=== PATIENT | female | born 1940 | race Caucasian/White ===

== ENCOUNTER → 2018-01-03 14:57 | Outpatient (CLI) | payer MEDICARE, SELFPAY ==
--- NOTE | 2018-01-03 15:04 | XR_ITS ---
XR abdomen min 2V HISTORY: ITS.REASON: LT FLANK PAIN ORDERING PHYSICIAN: Chip Ledezma MD PATIENT AGE: 77 years COMPARISON: None FINDINGS: Bowel gas pattern is unremarkable with a few air-fluid levels within the colon which does not appear distended. There are 2 calcific densities over lower pole the left kidney measuring 6 and 4 mm consistent with nephrolithiasis. Degenerative changes are present in the lumbar spine and hips. No obvious ureteral calculi. IMPRESSION: Left nephrolithiasis
== END ==
PROVIDERS: PCP Family Medicine; Visit Provider Family Medicine
DX: R10.9 Unspecified abdominal pain (principal)
CPT/HCPCS: 74019

== ENCOUNTER → 2018-01-07 10:23 | Outpatient (POV) | payer MEDICARE, SELFPAY ==
[2018-01-07 10:31] VITALS: BP 97/52; PULSE 81; RESP 18; TEMP 36.6; O2SAT 92; BMI 24.0
--- NOTE | 2018-01-07 10:53 | HMH.PAINSOAP ---
[facility] Pain Management SOAP Note Subjective:: She is a pleasant 77-year-old white female who presents today for medication refills. Patient has recently returned from a trip from [place]. She is doing very well with her current regimen of medicine. She takes Lyrica 75 mg 1 p.o. twice daily and [place] 7.5 mg 3 times daily as needed. Patient rates her pain a 3 out of 10 today. 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 Patient has done well with her Lyrica so far and has had no side effects she is wondering if increasing the medication would help improve this. Patient's RAZIA #[id number] reviewed and appropriate. Patient UDS pending we will continue to monitor this. ROS General: no recent weight change, no fever, no sleep disturbances Respiratory: no cough, no shortness of air, no recurring pulmonary infections Cardiovascular/Peripheral Vascular: No chest pain, No palpitations, no edema, no shortness of breath. Gastrointestinal: no incontinence, normal bowel movements reported Genitourinary: no incontinence Musculoskeletal: Back pain Psychiatric: normal mood/ affect, Neurological: [denies weakness in extremities], [denies balance issues] Objective:: Physical Exam General: Alert and oriented x3, no acute distress, pleasant and cooperative, [on room air] Lungs: Resps E/U, Symmetrical chest expansion, Eyes: PERRL Musculoskeletal: Flexion and extension of lumbar spine somewhat guarded secondary to pain, deep tendon reflexes normal, strength in upper and lower extremities [5/5], normal gait noted Neurological: speech clear, customs and border protection inspector equal, no gross sensory deficits Assessment:: Degenerative disc disease of the lumbar spine with lumbar radiculopathy Plan:: We will increase the patient's medication Lyrica 75 mg to 150 mg twice daily. We will also give her 1 refill of her [place] 7.5 mg 1 p.o. 3 times daily as needed. Patient's Razia has been reviewed and appropriate patient's UDS is pending we will continue to monitor this. We will follow-up with this patient in [address] Craven has reviewed her chart and agrees with this plan of care. Patient has been prescribed a controlled substance after being counseled on the medication, medication safety, and possible side effects. RAZIA report has been obtained and reviewed prior to prescription and found to be appropriate. Opioid contract was reviewed and signed by the patient, and that they have agreed to all of the terms set forth by our compliance program. This note was dictated using voice recognition software and may contain errors or omissions
--- NOTE | 2018-01-07 10:56 | P.CONS_ITS ---
[facility] Pain Management SOAP Note Subjective:: She is a pleasant 77-year-old white female who presents today for medication refills. Patient has recently returned from a trip from [place]. She is doing very well with her current regimen of medicine. She takes Lyrica 75 mg 1 p.o. twice daily and [place] 7.5 mg 3 times daily as needed. Patient rates her pain a 3 out of 10 today. 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 Patient has done well with her Lyrica so far and has had no side effects she is wondering if increasing the medication would help improve this. Patient's RAZIA #[id number] reviewed and appropriate. Patient UDS pending we will continue to monitor this. ROS General: no recent weight change, no fever, no sleep disturbances Respiratory: no cough, no shortness of air, no recurring pulmonary infections Cardiovascular/Peripheral Vascular: No chest pain, No palpitations, no edema, no shortness of breath. Gastrointestinal: no incontinence, normal bowel movements reported Genitourinary: no incontinence Musculoskeletal: Back pain Psychiatric: normal mood/ affect, Neurological: [denies weakness in extremities], [denies balance issues] Objective:: Physical Exam General: Alert and oriented x3, no acute distress, pleasant and cooperative, [ on room air] Lungs: Resps E/U, Symmetrical chest expansion, Eyes: PERRL Musculoskeletal: Flexion and extension of lumbar spine somewhat guarded secondary to pain, deep tendon reflexes normal, strength in upper and lower extremities [5/5], normal gait noted Neurological: speech clear, production line equal, no gross sensory deficits Assessment:: Degenerative disc disease of the lumbar spine with lumbar radiculopathy Plan:: We will increase the patient's medication Lyrica 75 mg to 150 mg twice daily. We will also give her 1 refill of her [place] 7.5 mg 1 p.o. 3 times daily as needed. Patient's Razia has been reviewed and appropriate patient's UDS is pending we will continue to monitor this. We will follow-up with this patient in [address] Craven has reviewed her chart and agrees with this plan of care. Patient has been prescribed a controlled substance after being counseled on the medication, medication safety, and possible side effects. RAZIA report has been obtained and reviewed prior to prescription and found to be appropriate. Opioid contract was reviewed and signed by the patient, and that they have agreed to all of the terms set forth by our compliance program. This note was dictated using voice recognition software and may contain errors or omissions
[2018-01-07 13:18] LABS: Amphetamine/Metha Screen,Urine Negative ng/mL (<1000); Barbiturates Screen,Urine Negative ng/mL (<200); Benzodiazepines Screen,Urine Negative ng/mL (200); Cannabinoid Screen,Urine Negative ng/mL (<50); Cocaine Screen,Urine Negative ng/g (<300); Methadone Screen,Urine Negative ng/mL (<300); Opiate Screen,Urine Negative ng/mL (<300); Phencyclidine Screen,Urine Negative ng/mL (<25)
[2018-01-11 15:33] LABS: Opiates Negative (Cutoff=100)
== END ==
PROVIDERS: Family Provider Family Medicine; PCP Family Medicine; Visit Provider Clinical Nurse Specialist Family Health
DX: M54.16 Radiculopathy, lumbar region (principal); Z79.899 Other long term (current) drug therapy
CPT/HCPCS: 99212; 80305; 80361; 80365; G0480

== ENCOUNTER → 2018-01-16 11:21 | Outpatient (CLI) | payer MEDICARE, SELFPAY ==
--- NOTE | 2018-01-16 11:27 | CT_ITS ---
CT abdomen pelvis wo con CLINICAL INDICATION: ITS.REASON: LT FLANK PAIN, HEMATURIA, HX KID STONE ORDERING PHYSICIAN: Chip Ledezma MD PATIENT AGE: 77 years COMPARISON: 09/26/2011 TECHNIQUE: Axial images obtained with sagittal and coronal reformats. All CT scans at the facility use one or more dose reduction, viz: automated exposure control; ma/kV adjustment per patient size (including targeted exams where dose is matched to indication; i.e. head); or iterative reconstruction technique. PROCEDURE: Oral Contrast: None IV Contrast: None . FINDINGS: Lower thoracic images show scarring in the left lung base posterior laterally. The liver, spleen, adrenal glands, and pancreas have an unremarkable unenhanced appearance. No radio opaque gallstones are evident. There is moderate left hydronephrosis and proximal hydroureter secondary to a obstructing 4 mm stone in the proximal to mid aspect of the left ureter. The stone is at the L4 level. Is mild stranding of left perinephric renal fat. There is a 6 mm stone in the lower pole the left kidney. A 17 mm isodensity is present in the lower pole the right kidney suggesting a right renal cyst. Right parapelvic renal cysts also noted. Small lymph nodes versus unopacified vessels in the retroperitoneum on the left medial to the left renal hilum. There is a fusiform infrarenal abdominal aortic aneurysm measuring 4.7 cm AP and 4.4 cm transverse. This has increased in size previously measuring 3.3 x 3.3 cm. No intracranial hemorrhage evident. There is a mild amount retained colonic feces. No intestinal obstruction or free air. There are some very minimal stranding of the lateral conal fascia on the left which may be related to the left renal obstruction some underlying inflammation. No pelvic mass or abnormal collection. Degenerative changes are present in the lumbar spine. There is mild wedging of L3 unchanged. Minimal wedging involves T12 which is developed since the interval but does not appear to. There is 5 mm anterolisthesis of L3 on L4 which has developed since the previous exam with facet arthritic changes at L3-L4 and moderate to severe facet hypertrophy with canal stenosis at L3-L4 with foraminal narrowing. IMPRESSION: 1. 4 mm obstructing left mid ureteral calculus with moderate left hydronephrosis. Left nephrolithiasis. 2. Enlarging infrarenal abdominal aortic aneurysm 4.4 x 4.7 cm previously 3.3 x 3.3 cm 3. Other nonacute findings as described above.
== END ==
PROVIDERS: PCP Family Medicine; Visit Provider Family Medicine
DX: R10.9 Unspecified abdominal pain (principal); R31.29 Other microscopic hematuria; Z87.442 Personal history of urinary calculi
CPT/HCPCS: 74176

== ENCOUNTER → 2018-03-14 10:50 | Outpatient (CLI) | payer MEDICARE, SELFPAY ==
--- NOTE | 2018-03-14 10:55 | XR_ITS ---
XR KUB HISTORY: ITS.REASON: KIDNEY STONES ORDERING PHYSICIAN: Geoff Brush MD PATIENT AGE: 77 years COMPARISON: 01/16/2019 FINDINGS: There has been prior aortoiliac stent graft placement. A 6 mm stone is present along the lower pole of the left kidney. No obvious ureteral calculi. IMPRESSION: 1. Left nephrolithiasis without obvious ureteral calculus. 2. Interval aortoiliac stent graft placement
== END ==
PROVIDERS: PCP Family Medicine; Visit Provider Urology
DX: N20.0 Calculus of kidney (principal)
CPT/HCPCS: 74018

== ENCOUNTER → 2018-04-15 10:10 | Outpatient (POV) | payer MEDICARE, SELFPAY | PROVIDERS: Visit Provider Physician Assistant | DX: Z00.00 Encounter for general adult medical examination without abnormal findings (principal) ==

== ENCOUNTER → 2018-05-20 08:35 | Outpatient (POV) | payer MEDICARE, SELFPAY ==
[2018-05-20 09:19] VITALS: BP 141/67; PULSE 73; RESP 18; O2SAT 98; BMI 24.1
--- NOTE | 2018-05-20 09:57 | HMH.PAINSOAP ---
[facility] Pain Management SOAP Note Subjective:: Patient is a pleasant 77-year-old white female who presents today for medication refills. Patient has been doing well on her Lyrica 75 mg 1 p.o. twice daily. We will be increasing her to Lyrica 150 mg 1 p.o. twice daily. Patient has good with this medication with no side effects. Patient also on [place] 7.5 mg 1 p.o. 3 times daily as needed. Patient rates her pain at 3 out of 10 today. Patient's RAZIA #[id number] reviewed and appropriate. Patient will go for urine drug screen today. Patient states that most of her pain is around her low left mastectomy radiating into her arm. ROS General: no recent weight change, no fever, no sleep disturbances Respiratory: no cough, no shortness of air, no recurring pulmonary infections Cardiovascular/Peripheral Vascular: No chest pain, No palpitations, no edema, no shortness of breath. Gastrointestinal: no incontinence, normal bowel movements reported Genitourinary: no incontinence Musculoskeletal: Neck pain, chest wall pain Psychiatric: normal mood/ affect Neurological: [denies weakness in extremities], [denies balance issues] Objective:: Physical Exam General: Alert and oriented x3, no acute distress, pleasant and cooperative, [on room air] Lungs: Resps E/U, Symmetrical chest expansion, Eyes: PERRL Musculoskeletal: Flexion and extension of lumbar spine somewhat guarded secondary to pain, deep tendon reflexes normal, strength in upper and lower extremities [5/5], slightly antalgic gait noted Neurological: speech clear, slitter and rewinder equal, no gross sensory deficits Assessment:: Degenerative disc disease of lumbar spine with lumbar radiculopathy, chest wall pain Plan:: We will fill her Lyrica 150 mg 1 p.o. twice daily and give 1 month worth of her [place] 7.5 mg 1 p.o. 3 times daily. Patient's RAZIA reviewed. Patient will go for UDS today. Dr. Craven has reviewed this chart and agrees with this plan of care. We will follow-up with this patient in 3 months. We will call in a 1 week supply of Lyrica 150 mg 1 p.o. twice daily to [facility] until she can get her mail pharmacy prescription. Patient has been prescribed a controlled substance after being counseled on the medication, medication safety, and possible side effects. RAZIA report has been obtained and reviewed prior to prescription and found to be appropriate. Opioid contract was reviewed and signed by the patient, and that they have agreed to all of the terms set forth by our compliance program. This note was dictated using voice recognition software and may contain errors or omissions
--- NOTE | 2018-05-20 10:00 | P.CONS_ITS ---
[facility] Pain Management SOAP Note Subjective:: Patient is a pleasant 77-year-old white female who presents today for medication refills. Patient has been doing well on her Lyrica 75 mg 1 p.o. twice daily. We will be increasing her to Lyrica 150 mg 1 p.o. twice daily. Patient has good with this medication with no side effects. Patient also on [place] 7.5 mg 1 p.o. 3 times daily as needed. Patient rates her pain at 3 out of 10 today. Patient's RAZIA #[id number] reviewed and appropriate. Patient will go for urine drug screen today. Patient states that most of her pain is around her low left mastectomy radiating into her arm. ROS General: no recent weight change, no fever, no sleep disturbances Respiratory: no cough, no shortness of air, no recurring pulmonary infections Cardiovascular/Peripheral Vascular: No chest pain, No palpitations, no edema, no shortness of breath. Gastrointestinal: no incontinence, normal bowel movements reported Genitourinary: no incontinence Musculoskeletal: Neck pain, chest wall pain Psychiatric: normal mood/ affect Neurological: [denies weakness in extremities], [denies balance issues] Objective:: Physical Exam General: Alert and oriented x3, no acute distress, pleasant and cooperative, [ on room air] Lungs: Resps E/U, Symmetrical chest expansion, Eyes: PERRL Musculoskeletal: Flexion and extension of lumbar spine somewhat guarded secondary to pain, deep tendon reflexes normal, strength in upper and lower extremities [5/5], slightly antalgic gait noted Neurological: speech clear, social insurance adviser equal, no gross sensory deficits Assessment:: Degenerative disc disease of lumbar spine with lumbar radiculopathy, chest wall pain Plan:: We will fill her Lyrica 150 mg 1 p.o. twice daily and give 1 month worth of her [place] 7.5 mg 1 p.o. 3 times daily. Patient's RAZIA reviewed. Patient will go for UDS today. Dr. Craven has reviewed this chart and agrees with this plan of care. We will follow-up with this patient in 3 months. We will call in a 1 week supply of Lyrica 150 mg 1 p.o. twice daily to [facility] until she can get her mail pharmacy prescription. Patient has been prescribed a controlled substance after being counseled on the medication, medication safety, and possible side effects. RAZIA report has been obtained and reviewed prior to prescription and found to be appropriate. Opioid contract was reviewed and signed by the patient, and that they have agreed to all of the terms set forth by our compliance program. This note was dictated using voice recognition software and may contain errors or omissions
[2018-05-20 13:43] LABS: Amphetamine/Metha Screen,Urine Negative ng/mL (<1000); Barbiturates Screen,Urine Negative ng/mL (<200); Benzodiazepines Screen,Urine Negative ng/mL (<200); Cannabinoid Screen,Urine Negative ng/mL (<50); Cocaine Screen,Urine Negative ng/mL (<300); Methadone Screen,Urine Negative ng/mL (<300); Opiate Screen,Urine Positive ng/mL (<300); Phencyclidine Screen,Urine Negative ng/mL (<25)
[2018-05-28 23:17] LABS: Codeine Negative (Cutoff=100); Hydrocodone Positive (.); Hydromorphone Positive (.); Morphine Negative (Cutoff=100)
[2018-05-29 16:47] LABS: Opiates Positive (.)
== END ==
PROVIDERS: Family Provider Family Medicine; Visit Provider Clinical Nurse Specialist Family Health
DX: M54.16 Radiculopathy, lumbar region (principal); Z79.899 Other long term (current) drug therapy
CPT/HCPCS: 80305; 80361; 80365; 99212; G0480

== ENCOUNTER → 2018-05-31 13:33 | Outpatient (CLI) | payer MEDICARE, SELFPAY ==
--- NOTE | 2018-05-31 13:35 | CT_ITS ---
CT lung screening EXAM: CT LUNG LOW DOSE WO CONTRAST HISTORY: 77 year old female asymptomatic with 30 pack-year smoking history ITS.REASON: CURRENT TOBACCO USE ORDERING PHYSICIAN: Chip Ledezma MD PATIENT AGE: 77 years COMPARISON: 11/21/2016 TECHNIQUE: The exam was performed on a GE Light Speed [address] scanner using 2.90 mGy CTDI. A low dose helical CT CHEST was performed on a multi-detector scanner. All CT scans at the facility use one or more dose reduction, viz: automated exposure control, ma/kV adjustment per patient size (including targeted exams where dose is matched to indication, i.e. head), or iterative reconstruction technique. The LDCT was performed in a facility that meets the criteria for the screening program. Data regarding this exam was submitted to ACR which is an approved registry. The order for this exam indicates that it came as a result of a lung cancer screening counseling shard decision-making visit that included all the elements required of such a visit including smoking cessation. The radiologist interpreting this exam meets the CMS criteria for the LDCT lung cancer screening program. The exam is reported using the Lung-RADS classification scale and reported to the ACR registry. NOTE: This study was performed for the specific purposes of lung cancer screening and is not an alternative to diagnostic chest CT. RADIATION DOSE: CTDI vol(CT dose Index-volume) = 2.90mG DLP (Dose Length Product) = 103.31 mGcm FINDINGS: There are centrilobular emphysematous changes. Stable patchy area of groundglass density is present in the right upper lobe anteriorly at 9 mm. No solid component. There is a calcified granuloma in the left lower lobe anteriorly and there are mild fibrotic changes in the left lung base posterolaterally. No change in the 3 mm opacity in the right lower lobe centrally. No new nodules. Extensive coronary artery calcification is noted. There are scattered small lymph nodes within the mediastinum unchanged. IMPRESSION: 1. Lung RADS Category: 2, benign 2. Other findings: Centrilobular emphysema, coronary artery disease, old granulomatous disease RECOMMENDATIONS: 12 month LDCT follow-up
== END ==
PROVIDERS: Family Provider Family Medicine; PCP Family Medicine; Visit Provider Family Medicine
DX: Z12.2 Encounter for screening for malignant neoplasm of respiratory organs (principal); Z87.891 Personal history of nicotine dependence

== ENCOUNTER → 2018-07-23 14:48 | Outpatient (CLI) | payer MEDICARE, SELFPAY ==
--- NOTE | 2018-07-23 14:54 | CT_ITS ---
CT abdomen pelvis wo con CLINICAL INDICATION: ITS.REASON: LEFT FLANK PAIN,H/O STONES,HEMATURIA ORDERING PHYSICIAN: Chip Ledezma MD PATIENT AGE: 78 years COMPARISON: 01/16/2018 TECHNIQUE: Axial images obtained with sagittal and coronal reformats. All CT scans at the facility use one or more dose reduction, viz: automated exposure control, ma/kV adjustment per patient size (including targeted exams where dose is matched to indication, i.e. head), or iterative reconstruction technique. PROCEDURE: Oral Contrast: None IV Contrast: None . FINDINGS: There are chronic changes in the lung bases with a calcified granuloma in the left lower lobe and some pleural thickening noted in the posterior lateral aspect of the left lower lobe which appears stable. Coronary artery calcifications are present Liver, spleen, adrenal glands, gallbladder, and pancreas have an unremarkable unenhanced CT appearance. There is a 9 mm stone in the left renal pelvis just superior to the ureteropelvic junction. No hydronephrosis. Right-sided parapelvic renal cysts are noted with a renal cortical cyst measuring up to 2 cm. No right renal calculi. No ureteral calculi. There has been interval placement of an aortoiliac stent graft with decrease in size of the aortic aneurysm. Maximum dimensions of the [place] aorta is 4.3 x 3.4 cm previously 5 x 5 cm. No evidence of retroperitoneal hemorrhage. No intestinal obstruction or free air. No evidence of appendicitis or diverticulitis. There is diverticulosis of the sigmoid colon. There are degenerative changes of the lumbar spine with 4 mm anterolisthesis of L3 and L5. Facet arthritic changes noted in the lumbar spine. IMPRESSION: 1. 9 mm left renal pelvic stone. No significant dilatation of the renal collecting system however, the stone is just proximal to the ureterovesical junction 2. Interval aortoiliac stent graft placement
== END ==
PROVIDERS: PCP Family Medicine; Visit Provider Family Medicine
DX: R10.9 Unspecified abdominal pain (principal); R31.29 Other microscopic hematuria; Z87.442 Personal history of urinary calculi
CPT/HCPCS: 74176

== ENCOUNTER → 2018-08-19 10:13 | Outpatient (POV) | payer MEDICARE, SELFPAY ==
[2018-08-19 10:22] VITALS: BP 140/67; PULSE 86; RESP 18; O2SAT 98; BMI 24.5
--- NOTE | 2018-08-19 10:38 | P.CONS_ITS ---
[facility] Pain Management SOAP Note Subjective:: Patient is a pleasant 78-year-old white female who presents today for medication refills. Patient's been doing well on her Lyrica 150 mg 1 p.o. twice daily and her [place] 7.5 mg 1 p.o. 3 times daily. Patient states that she has been having a little more pain lately after a kidney stone and lithotripsy. She rates her pain a 5 out of 10 today. Patient's RAZIA #[id number] reviewed. Patient states most of her pain is around her left mastectomy radiating into her arm ROS General: no recent weight change, no fever, no sleep disturbances Respiratory: no cough, no shortness of air, no recurring pulmonary infections Cardiovascular/Peripheral Vascular: No chest pain, No palpitations, no edema, no shortness of breath. Gastrointestinal: no incontinence, normal bowel movements reported Genitourinary: no incontinence Musculoskeletal: Neck pain, chest wall pain Psychiatric: normal mood/ affect Neurological: [denies weakness in extremities], [denies balance issues] Objective:: Physical Exam General: Alert and oriented x3, no acute distress, pleasant and cooperative, [on room air] Lungs: Resps E/U, Symmetrical chest expansion, Eyes: PERRL Musculoskeletal: Range of motion left arm somewhat guarded secondary to pain, deep tendon reflexes normal, strength in upper and lower extremities [5/5], normal gait noted Neurological: speech clear, heavy equipment operating engineer equal, no gross sensory deficits Assessment:: Degenerative disc disease lumbar spine lumbar radiculopathy and chest wall pain Plan:: We will refill her Lyrica 150 mg 1 p.o. twice daily and give her 3 months worth. We will also give her 2 prescriptions for [place] 7.5 mg 1 p.o. 3 times daily and follow-up with her in [address] Craven is reviewed this chart and agrees with this plan of care. Patient has been prescribed a controlled substance after being counseled on the medication, medication safety, and possible side effects. RAZIA report has been obtained and reviewed prior to prescription and found to be appropriate. Opioid contract was reviewed and signed by the patient, and that they have agreed to all of the terms set forth by our compliance program. This note was dictated using voice recognition software and may contain errors or omissions
== END ==
PROVIDERS: Family Provider Family Medicine; PCP Family Medicine; Visit Provider Clinical Nurse Specialist Family Health
DX: M51.16 Intervertebral disc disorders with radiculopathy, lumbar region (principal); R07.89 Other chest pain
CPT/HCPCS: 99213

== ENCOUNTER → 2018-08-22 13:31 | Outpatient (CLI) | payer MEDICARE, SELFPAY ==
--- NOTE | 2018-08-22 13:34 | XR_ITS ---
XR KUB HISTORY: Follow-up kidney stones ITS.REASON: kidney stones ORDERING PHYSICIAN: Geoff Brush MD PATIENT AGE: 78 years COMPARISON: 03/14/2018 FINDINGS: Aortoiliac stent graft is present. There are 2 4-mm stones along the lower pole of the left kidney. Previously there was a 6 mm stone along the lower pole left kidney which is not identified. There are degenerative changes in the lumbar spine. IMPRESSION: Left nephrolithiasis
== END ==
PROVIDERS: PCP Family Medicine; Visit Provider Urology
DX: N20.0 Calculus of kidney (principal)
CPT/HCPCS: 74018

== ENCOUNTER → 2018-09-23 08:23 | Outpatient (CLI) | payer MEDICARE, SELFPAY ==
--- NOTE | 2018-09-23 | XR_ITS ---
XR DEXA axial skeleton HISTORY: ITS.REASON: OSTEOPENIA ORDERING PHYSICIAN: Chip Ledezma MD PATIENT AGE: 78 years COMPARISON: 09/22/2016 FINDINGS: The BMD measured at the Left femoral neck is 0.766 g/cm squared with a T score of -2.0. This is considered Osteopenic according to the World Health Organization criteria. Fracture risk is Moderate. Treatment is advised. L1 L4 density has a T score of 2.3. This findings is increased by 12% and the main hip density has increased by 0.5%. IMPRESSION: Osteopenia with moderate fracture risk. Treatment is advised. Recommend follow-up exam August 2020
== END ==
PROVIDERS: PCP Family Medicine; Visit Provider Family Medicine
DX: M85.89 Other specified disorders of bone density and structure, multiple sites (principal)
CPT/HCPCS: 77080

== ENCOUNTER → 2018-11-11 11:42 | Outpatient (POV) | payer MEDICARE, SELFPAY ==
--- NOTE | 2018-11-11 11:53 | P.CONS_ITS ---
[facility] Pain Management SOAP Note Subjective:: Patient is a pleasant 78-year-old white female who presents today for follow-up. Patient is doing well on her Lyrica and [place] prescriptions. She is being treated for pain secondary to generative disc disease lumbar spine with lumbar radiculopathy and chest wall pain secondary to a left mastectomy patient currently on Lyrica 150 mg 1 p.o. twice daily and is doing well with this.. ROS General: no recent weight change, no fever, no sleep disturbances Respiratory: no cough, no shortness of air, no recurring pulmonary infections Cardiovascular/Peripheral Vascular: No chest pain, No palpitations, no edema, no shortness of breath. Gastrointestinal: no incontinence, normal bowel movements reported Genitourinary: no incontinence Musculoskeletal: Back pain, left chest wall pain at times Psychiatric: normal mood/ affect Neurological: [denies weakness in extremities], [denies balance issues] Objective:: Physical Exam General: Alert and oriented x3, no acute distress, pleasant and cooperative, [on room air] Lungs: Resps E/U, Symmetrical chest expansion, Eyes: PERRL Musculoskeletal: Flexion and extension of lumbar spine somewhat guarded secondary to pain, deep tendon reflexes normal, strength in upper and lower extremities [5/5], slightly antalgic gait noted Neurological: speech clear, centerless grinder set up operator equal, no gross sensory deficits Assessment:: Degenerative disc disease lumbar spine with lumbar radiculopathy, chest wall orquidea n secondary to mastectomy Plan:: We will refill her Lyrica 5150 mg 1 p.o. twice daily and [place] 7.5 mg po 3 times a day and give her 3 months worth. We will see her back in 3 months and reassess her symptoms at that time. Dr. Craven is reviewed this chart and agrees with plan of care. This note was dictated using voice recognition software and may contain errors or omissions
[2018-11-11 11:58] VITALS: BP 149/70; PULSE 71; RESP 18; O2SAT 98; BMI 24.5
--- NOTE | 2019-01-09 08:41 | PC.PHONENOTE ---
called in Rx for Gabapentin 300mg TID with no refills to pt's pharmacy
== END ==
PROVIDERS: PCP Family Medicine; Visit Provider Clinical Nurse Specialist Family Health
DX: M51.16 Intervertebral disc disorders with radiculopathy, lumbar region (principal); R07.89 Other chest pain; Z90.10 Acquired absence of unspecified breast and nipple
CPT/HCPCS: 99213

== ENCOUNTER → 2019-02-03 10:06 | Outpatient (POV) | payer MEDICARE, SELFPAY ==
[2019-02-03 10:23] VITALS: BP 111/53; PULSE 82; RESP 18; O2SAT 98; BMI 25.3
--- NOTE | 2019-02-03 10:32 | HMH.PAINSOAP ---
[facility] Pain Management SOAP Note Subjective:: Patient is a pleasant 78-year-old white female who presents today for follow-up. She is doing well on her Lyrica and [place]. 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 She is currently on Lyrica 150 mg 1 p.o. twice daily and [place] 7.5 mg 1 p.o. 3 times daily. She rates her pain a 2 out of 10 today. ROS General: no recent weight change, no fever, no sleep disturbances Respiratory: no cough, no shortness of air, no recurring pulmonary infections Cardiovascular/Peripheral Vascular: No chest pain, No palpitations, no edema, no shortness of breath. Gastrointestinal: no incontinence, normal bowel movements reported Genitourinary: no incontinence Musculoskeletal: Back pain, left chest wall pain Psychiatric: normal mood/ affect Neurological: [denies weakness in extremities], [denies balance issues] Objective:: Physical Exam General: Alert and oriented x3, no acute distress, pleasant and cooperative, [on room air] Lungs: Resps E/U, Symmetrical chest expansion, Eyes: PERRL Musculoskeletal: Flexion and extension of lumbar spine somewhat guarded secondary to pain, deep tendon reflexes normal, strength in upper and lower extremities [5/5], [abnormal gait noted] Neurological: speech clear, service counselor equal, no gross sensory deficits Assessment:: degenerative disc disease lumbar spine with lumbar radiculopathy chest wall pain secondary to mastectomy Plan:: We will refill her Lyrica 150 mg 1 p.o. twice daily and [place] 7.5 mg 1 p.o. 3 times daily we will give her 1 month worth of prescriptions. She can come back in the interim and potato picker additional prescriptions if necessary. I will see the patient back in 3 months reassess her symptoms at that time. Patient has been prescribed a controlled substance after being counseled on the medication, medication safety, and possible side effects. RAZIA report has been obtained and reviewed prior to prescription and found to be appropriate. Opioid contract was reviewed and signed by the patient, and that they have agreed to all of the terms set forth by our compliance program. Dr. Craven has reviewed this note and agrees with this plan of care. This note was dictated using voice recognition software and may contain errors or omissions
--- NOTE | 2019-02-03 10:35 | P.CONS_ITS ---
[facility] Pain Management SOAP Note Subjective:: Patient is a pleasant 78-year-old white female who presents today for follow-up. She is doing well on her Lyrica and [place]. 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 She is currently on Lyrica 150 mg 1 p.o. twice daily and [place] 7.5 mg 1 p.o. 3 times daily. She rates her pain a 2 out of 10 today. ROS General: no recent weight change, no fever, no sleep disturbances Respiratory: no cough, no shortness of air, no recurring pulmonary infections Cardiovascular/Peripheral Vascular: No chest pain, No palpitations, no edema, no shortness of breath. Gastrointestinal: no incontinence, normal bowel movements reported Genitourinary: no incontinence Musculoskeletal: Back pain, left chest wall pain Psychiatric: normal mood/ affect Neurological: [denies weakness in extremities], [denies balance issues] Objective:: Physical Exam General: Alert and oriented x3, no acute distress, pleasant and cooperative, [on room air] Lungs: Resps E/U, Symmetrical chest expansion, Eyes: PERRL Musculoskeletal: Flexion and extension of lumbar spine somewhat guarded secondary to pain, deep tendon reflexes normal, strength in upper and lower extremities [5/5], [abnormal gait noted] Neurological: speech clear, tilt wall supervisor equal, no gross sensory deficits Assessment:: degenerative disc disease lumbar spine with lumbar radiculopathy chest wall pain secondary to mastectomy Plan:: We will refill her Lyrica 150 mg 1 p.o. twice daily and [place] 7.5 mg 1 p.o. 3 times daily we will give her 1 month worth of prescriptions. 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 I will see the patient back in 3 months reassess her symptoms at that time. Patient has been prescribed a controlled substance after being counseled on the medication, medication safety, and possible side effects. RAZIA report has been obtained and reviewed prior to prescription and found to be appropriate. Opioid contract was reviewed and signed by the patient, and that they have agreed to all of the terms set forth by our compliance program. Dr. Craven has reviewed this note and agrees with this plan of care. This note was dictated using voice recognition software and may contain errors or omissions
== END ==
PROVIDERS: PCP Family Medicine; Visit Provider Clinical Nurse Specialist Family Health
DX: M51.16 Intervertebral disc disorders with radiculopathy, lumbar region (principal); R07.2 Precordial pain; Z90.10 Acquired absence of unspecified breast and nipple
CPT/HCPCS: 99212

== ENCOUNTER → 2019-03-18 14:24 | Outpatient (POV) | payer MEDICARE, SELFPAY | PROVIDERS: Visit Provider Dermatology | DX: Z00.00 Encounter for general adult medical examination without abnormal findings (principal) ==

== ENCOUNTER → 2019-04-22 10:23 | Outpatient (POV) | payer MEDICARE, SELFPAY | PROVIDERS: Visit Provider Dermatology | DX: Z00.00 Encounter for general adult medical examination without abnormal findings (principal) ==

== ENCOUNTER → 2019-04-28 14:27 | Outpatient (CLI) | payer MEDICARE, SELFPAY ==
--- NOTE | 2019-04-28 14:33 | XR_ITS ---
XR chest 2V HISTORY: ITS.REASON: COUGH ORDERING PHYSICIAN: Chip Ledezma MD PATIENT AGE: 78 years COMPARISON: 10/14/2012 FINDINGS: The cardiomediastinal silhouette and pulmonary vascularity are within normal limits. Increased markings are present in the right lower lobe suggestive of right lower lobe pneumonia. There is COPD with prominence of the interstitium. There is evidence of old granulomatous disease. IMPRESSION: COPD with right lower lobe pneumonia.
== END ==
PROVIDERS: PCP Family Medicine; Visit Provider Family Medicine
DX: R05 Cough (principal)
CPT/HCPCS: 71046

== ENCOUNTER → 2019-05-05 11:36 | Outpatient (POV) | payer MEDICARE, SELFPAY ==
[2019-05-05 11:49] VITALS: BP 106/57; PULSE 82; RESP 18; O2SAT 98; BMI 25.1
--- NOTE | 2019-05-05 12:55 | HMH.PAINSOAP ---
[facility] Pain Management SOAP Note Subjective:: Patient is a pleasant 78-year-old white female who presents today for medication refills. She is doing well currently rating her pain a 3 out of 10. Patient currently on Lyrica 150 mg 1 p.o. twice daily and [place] 7.5 mg 1 p.o. 3 times daily as needed. Patient's RAZIA #[id number] reviewed and appropriate. Urine drug screens have been appropriate in the past. She denies side effects from medication and states it helps up to 80%. She has pain secondary to degenerative disc disease lumbar spine with lumbar radiculopathy along with chest wall pain secondary to left mastectomy ROS General: no recent weight change, no fever, no sleep disturbances Respiratory: no cough, no shortness of air, no recurring pulmonary infections Cardiovascular/Peripheral Vascular: No chest pain, No palpitations, no edema, no shortness of breath. Gastrointestinal: no incontinence, normal bowel movements reported Genitourinary: no incontinence Musculoskeletal: Back pain, left chest wall pain Psychiatric: normal mood/ affect, [denies depression], [denies anxiety] Neurological: [denies weakness in extremities], [denies balance issues] Objective:: Physical Exam General: Alert and oriented x3, no acute distress, pleasant and cooperative, [on room air] Lungs: Resps E/U, Symmetrical chest expansion, [CTA bilateral] Eyes: PERRL Musculoskeletal: Flexion and extension of lumbar spine somewhat guarded secondary to pain, deep tendon reflexes normal, strength in upper and lower extremities [5/5], slightly antalgic gait noted Neurological: speech clear, rn mental health equal, no gross sensory deficits Assessment:: Degenerative disc disease lumbar spine with lumbar radiculopathy, chest wall pain secondary to mastectomy Plan:: We will refill her Lyrica 150 mg 1 p.o. twice daily and [place] 7.5 mg 1 p.o. 3 times daily we will give her 1 month of her [place] prescription. Patient will be seen back in 3 months to be reassessed. We will also give her some compounding cream for her pain in her left chest wall to see if this is beneficial for her. She has been instructed to call the office if she has any issues prior to her next appointment Patient has been prescribed a controlled substance after being counseled on the medication, medication safety, and possible side effects. RAZIA report has been obtained and reviewed prior to prescription and found to be appropriate. Opioid contract was reviewed and signed by the patient, and that they have agreed to all of the terms set forth by our compliance program. Dr. Craven has reviewed this note and agrees with this plan of care. This note was dictated using voice recognition software and may contain errors or omissions
--- NOTE | 2019-05-05 12:58 | P.CONS_ITS ---
[facility] Pain Management SOAP Note Subjective:: Patient is a pleasant 78-year-old white female who presents today for medication refills. She is doing well currently rating her pain a 3 out of 10. Patient currently on Lyrica 150 mg 1 p.o. twice daily and [place] 7.5 mg 1 p.o. 3 times daily as needed. Patient's RAZIA #[id number] reviewed and appropriate. Urine drug screens have been appropriate in the past. She denies side effects from medication and states it helps up to 80%. She has pain secondary to degenerative disc disease lumbar spine with lumbar radiculopathy along with chest wall pain secondary to left mastectomy ROS General: no recent weight change, no fever, no sleep disturbances Respiratory: no cough, no shortness of air, no recurring pulmonary infections Cardiovascular/Peripheral Vascular: No chest pain, No palpitations, no edema, no shortness of breath. Gastrointestinal: no incontinence, normal bowel movements reported Genitourinary: no incontinence Musculoskeletal: Back pain, left chest wall pain Psychiatric: normal mood/ affect, [denies depression], [denies anxiety] Neurological: [denies weakness in extremities], [denies balance issues] Objective:: Physical Exam General: Alert and oriented x3, no acute distress, pleasant and cooperative, [on room air] Lungs: Resps E/U, Symmetrical chest expansion, [CTA bilateral] Eyes: PERRL Musculoskeletal: Flexion and extension of lumbar spine somewhat guarded secondary to pain, deep tendon reflexes normal, strength in upper and lower extremities [5/5], slightly antalgic gait noted Neurological: speech clear, veneer sander equal, no gross sensory deficits Assessment:: Degenerative disc disease lumbar spine with lumbar radiculopathy, chest wall pain secondary to mastectomy Plan:: We will refill her Lyrica 150 mg 1 p.o. twice daily and [place] 7.5 mg 1 p.o. 3 times daily we will give her 1 month of her [place] prescription. Patient will be seen back in 3 months to be reassessed. We will also give her some compounding cream for her pain in her left chest wall to see if this is beneficial for her. She has been instructed to call the office if she has any issues prior to her next appointment Patient has been prescribed a controlled substance after being counseled on the medication, medication safety, and possible side effects. RAZIA report has been obtained and reviewed prior to prescription and found to be appropriate. Opioid contract was reviewed and signed by the patient, and that they have agreed to all of the terms set forth by our compliance program. Dr. Craven has reviewed this note and agrees with this plan of care. This note was dictated using voice recognition software and may contain errors or omissions
[2019-05-05 14:22] LABS: Amphetamine/Metha Screen,Urine Negative ng/mL (<1000); Barbiturates Screen,Urine Negative ng/mL (<200); Benzodiazepines Screen,Urine Negative ng/mL (<200); Cannabinoid Screen,Urine Negative ng/mL (<50); Cocaine Screen,Urine Negative ng/mL (<300); Methadone Screen,Urine Negative ng/mL (<300); Opiate Screen,Urine Positive ng/mL (<300); Phencyclidine Screen,Urine Negative ng/mL (<25)
[2019-05-10 13:10] LABS: Codeine Negative (Cutoff=100); Hydrocodone Positive (.); Hydromorphone Positive (.); Morphine Negative (Cutoff=100)
[2019-05-11 22:48] LABS: Opiates Positive (.)
== END ==
PROVIDERS: PCP Family Medicine; Visit Provider Clinical Nurse Specialist Family Health
DX: M51.16 Intervertebral disc disorders with radiculopathy, lumbar region (principal); R07.2 Precordial pain; Z90.10 Acquired absence of unspecified breast and nipple; Z79.899 Other long term (current) drug therapy
CPT/HCPCS: 80305; 80361; 80365; 99212; G0480

== ENCOUNTER → 2019-06-19 09:52 | Outpatient (CLI) | payer MEDICARE, SELFPAY ==
--- NOTE | 2019-06-19 09:59 | XR_ITS ---
PROCEDURE: XR KUB CLINICAL INDICATION: Kidney Stones COMPARISON: ABDPELWO CT abdomen pelvis wo con from 07/23/2018 KUB XR KUB from 08/22/2018 FINDINGS: There is a 4 mm stone along the lower pole of the left kidney and also 1 along the lower pole of the right kidney. There has been a prior aortoiliac graft placed. Vascular calcifications are noted. IMPRESSION: No change bilateral nephrolithiasis Dictated by: Carmelo Cormier MD 06/19/2019 10:39 Signed by: <Electronically signed by Carmelo Cormier MD in [place]> 06/19/2019 10:39
== END ==
PROVIDERS: PCP Family Medicine; Visit Provider Urology
DX: N39.9 Disorder of urinary system, unspecified (principal)
CPT/HCPCS: 74018

== ENCOUNTER → 2019-07-28 10:39 | Outpatient (POV) | payer MEDICARE, SELFPAY ==
[2019-07-28 11:23] VITALS: BP 142/63; PULSE 74; RESP 18; O2SAT 98; BMI 26.2
--- NOTE | 2019-07-28 12:55 | HMH.PAINSOAP ---
[facility] Pain Management SOAP Note Subjective:: Patient is a pleasant 79-year-old white female who presents today for medication refills. She is doing well and currently rates her pain a 2 out of 10. She is on Lyrica 150 mg 1 p.o. twice daily and [place] 7.5 mg 1 p.o. 3 times daily as needed. Razia #[id number] reviewed and appropriate. Urine drug screens have been appropriate. She denies side effects or medication. She states it helps up to 80%. ROS General: no recent weight change, no fever, no sleep disturbances Respiratory: no cough, no shortness of air, no recurring pulmonary infections Cardiovascular/Peripheral Vascular: No chest pain, No palpitations, no edema, no shortness of breath. Gastrointestinal: no incontinence, normal bowel movements reported Genitourinary: no incontinence Musculoskeletal: Back pain, left chest wall pain Psychiatric: normal mood/ affect Neurological: [denies weakness in extremities], [denies balance issues] Objective:: Physical Exam General: Alert and oriented x3, no acute distress, pleasant and cooperative, [on room air] Lungs: Resps E/U, Symmetrical chest expansion, Eyes: PERRL Musculoskeletal: Flexion and extension of lumbar spine somewhat guarded secondary to pain, deep tendon reflexes normal, strength in upper and lower extremities [5/5], slightly antalgic gait noted Neurological: speech clear, risk consulting treasury director equal, no gross sensory deficits Assessment:: Degenerative disc disease lumbar spine with lumbar radiculopathy, chest wall pain Plan:: We will refill the patient's Lyrica 150 mg 1 p.o. twice daily and her [place] 7.5 mg 1 p.o. 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 I will see the patient back in 3 months reassess his symptoms at that time she is been instructed to call the office if she has any issues prior to her next appointment. Patient has been prescribed a controlled substance after being counseled on the medication, medication safety, and possible side effects. RAZIA report has been obtained and reviewed prior to prescription and found to be appropriate. Opioid contract was reviewed and signed by the patient, and that they have agreed to all of the terms set forth by our compliance program. Dr. Craven has reviewed this note and agrees with this plan of care. This note was dictated using voice recognition software and may contain errors or omissions [facility] History I have reviewed the patient's past medical history: Yes Medical History: Reports:: Cancer, Kidney Stones, Renal Disease *Have you ever received a pneumonia vaccine?: No *Have you received a flu vaccine this season?: No Other Medical History: Reports: Arthritis Laterality Cases: Other Surgeries: Yes: Tubal Ligation, Other Amputation: No Fractures: No - *Social History Smoking Status: Current every day smoker Tobacco Type: cigarettes Alcohol Intake: current Alcohol Intake Frequency:: a few times a month Substance Use Type: denies use *Occupational Status:: other Housing: house *Travel in the last 8 weeks: None Family Hx:: Unable to obtain
--- NOTE | 2019-07-28 12:58 | P.CONS_ITS ---
[facility] Pain Management SOAP Note Subjective:: Patient is a pleasant 79-year-old white female who presents today for medication refills. She is doing well and currently rates her pain a 2 out of 10. She is on Lyrica 150 mg 1 p.o. twice daily and [place] 7.5 mg 1 p.o. 3 times daily as needed. Razia #[id number] reviewed and appropriate. Urine drug screens have been appropriate. She denies side effects or medication. She states it helps up to 80%. ROS General: no recent weight change, no fever, no sleep disturbances Respiratory: no cough, no shortness of air, no recurring pulmonary infections Cardiovascular/Peripheral Vascular: No chest pain, No palpitations, no edema, no shortness of breath. Gastrointestinal: no incontinence, normal bowel movements reported Genitourinary: no incontinence Musculoskeletal: Back pain, left chest wall pain Psychiatric: normal mood/ affect Neurological: [denies weakness in extremities], [denies balance issues] Objective:: Physical Exam General: Alert and oriented x3, no acute distress, pleasant and cooperative, [on room air] Lungs: Resps E/U, Symmetrical chest expansion, Eyes: PERRL Musculoskeletal: Flexion and extension of lumbar spine somewhat guarded secondary to pain, deep tendon reflexes normal, strength in upper and lower extremities [5/5], slightly antalgic gait noted Neurological: speech clear, funeral sales manager equal, no gross sensory deficits Assessment:: Degenerative disc disease lumbar spine with lumbar radiculopathy, chest wall pain Plan:: We will refill the patient's Lyrica 150 mg 1 p.o. twice daily and her [place] 7.5 mg 1 p.o. 3 times daily we will give her 2 months with medication she can pick remover her 3rd-month in the interim if necessary. I will see the patient back in 3 months reassess his symptoms at that time she is been instructed to call the office if she has any issues prior to her next appointment. Patient has been prescribed a controlled substance after being counseled on the medication, medication safety, and possible side effects. RAZIA report has been obtained and reviewed prior to prescription and found to be appropriate. Opioid contract was reviewed and signed by the patient, and that they have agreed to all of the terms set forth by our compliance program. Dr. Craven has reviewed this note and agrees with this plan of care. This note was dictated using voice recognition software and may contain errors or omissions [facility] History I have reviewed the patient's past medical history: Yes Medical History: Reports:: Cancer, Kidney Stones, Renal Disease *Have you ever received a pneumonia vaccine?: No *Have you received a flu vaccine this season?: No Other Medical History: Reports: Arthritis Laterality Cases: Other Surgeries: Yes: Tubal Ligation, Other Amputation: No Fractures: No - *Social History Smoking Status: Current every day smoker Tobacco Type: cigarettes Alcohol Intake: current Alcohol Intake Frequency:: a few times a month Substance Use Type: denies use *Occupational Status:: other Housing: house *Travel in the last 8 weeks: None Family Hx:: Unable to obtain
== END ==
PROVIDERS: PCP Family Medicine; Visit Provider Clinical Nurse Specialist Family Health
DX: M51.16 Intervertebral disc disorders with radiculopathy, lumbar region (principal); R07.2 Precordial pain
CPT/HCPCS: 99212

== ENCOUNTER → 2019-08-06 13:33 | Outpatient (CLI) | payer MEDICARE, SELFPAY | PROVIDERS: PCP Family Medicine; Visit Provider Family Medicine | DX: G47.33 Obstructive sleep apnea (adult) (pediatric) (principal); R40.0 Somnolence; R06.83 Snoring | CPT/HCPCS: G0399 ==

== ENCOUNTER → 2019-09-02 16:18 | Outpatient (POV) | payer MEDICARE, SELFPAY | PROVIDERS: Visit Provider Dermatology | DX: Z00.00 Encounter for general adult medical examination without abnormal findings (principal) ==

== ENCOUNTER → 2019-10-27 10:36 | Outpatient (POV) | payer MEDICARE, SELFPAY ==
[2019-10-27 10:55] VITALS: BP 146/74; PULSE 78; RESP 18; O2SAT 99; BMI 24.7
--- NOTE | 2019-10-27 11:02 | HMH.PAINSOAP ---
[facility] Pain Management SOAP Note Subjective:: Patient is a pleasant 79-year-old white female who presents today for medication refills. She is being treated for pain secondary to degenerative disc disease lumbar spine with lumbar radiculopathy symptoms. She currently rates her pain a 3 out of 10. She is managed with Lyrica 150 mg 1 tablet p.o. twice daily and [employer] 7.5 mg 1 tablet p.o. 3 times daily. Her Razia #[id number] has been reviewed and is appropriate. Her urine drug screens are appropriate. The patient says she plans to travel to [place] within the next couple months. She says that she would like to hop picker her prescription in [place] in her second month. Review of Systems General: No recent weight changes, no fever, no sleep disturbances Respiratory: No cough, no shortness of air, no recurring pulmonary infections Cardiovascular/peripheral vascular: No chest pain, no palpitations, no edema, no shortness of breath Gastrointestinal: No new onset incontinence, normal bowel movements reported Genitourinary: No new onset incontinence Musculoskeletal: Low back pain Psychiatric: Normal mood/affect Neurological: [Denies weakness in extremities], [denies balance issues] Objective:: Physical exam General: Alert and oriented x3, no acute distress, pleasant and cooperative, [on room air] Lungs: Respirations even and unlabored, symmetrical chest expansion Eyes: PERRL Musculoskeletal: Flexion and extension of lumbar spine somewhat guarded secondary to pain, deep tendon reflexes normal, strength in upper and lower extremities [5/5], [abnormal gait noted] Neurological: Speech clear, side seam machine operator equal, no gross sensory deficit Assessment:: Degenerative disc disease lumbar spine with lumbar radiculopathy symptoms, chest wall pain Plan:: We will refill the patient's [employer] 7.5 mg 1 tablet p.o. 3 times daily. We will also give the patient Lyrica 150 mg 1 tablet p.o. twice daily with a 3-month supply. We will give HER-2 months worth of medication of [employer] and she can hop picker the third month in the interim. We will see the patient back in the clinic in 3 months to reassess her symptoms. Patient has been instructed to contact the clinic if she has any concerns before next appointment. Dr. Craven has reviewed this note and agrees with this plan of care. This note was dictated using voice recognition software and make contain errors or omissions. Patient has been prescribed a controlled substance after being counseled on the medication, medication safety, and possible side effects. RAZIA report has been obtained and reviewed prior to prescription and found to be appropriate. Opioid contract was reviewed and signed by the patient, and that they have agreed to all of the terms set forth by our compliance program. 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
== END ==
PROVIDERS: PCP Family Medicine; Visit Provider Clinical Nurse Specialist Family Health
DX: M51.16 Intervertebral disc disorders with radiculopathy, lumbar region (principal); R07.89 Other chest pain
CPT/HCPCS: 99212

== ENCOUNTER → 2020-03-16 11:42 | Outpatient (POV) | payer MEDICARE, SELFPAY | PROVIDERS: PCP Physician Assistant; Visit Provider Physician Assistant | DX: Z00.00 Encounter for general adult medical examination without abnormal findings (principal) ==

== ENCOUNTER → 2020-05-04 16:36 | Outpatient (POV) | payer MEDICARE, SELFPAY | PROVIDERS: Visit Provider Dermatology | DX: Z00.00 Encounter for general adult medical examination without abnormal findings (principal) ==

== ENCOUNTER → 2020-06-07 10:00 | Outpatient (CLI) | payer MEDICARE, SELFPAY ==
--- NOTE | 2020-06-07 10:11 | CT_ITS ---
PROCEDURE: CT LUNG SCREENING CLINICAL INDICATION: H/O NICOTINE DEPENDENCE 62 PACK YEAR SMOKING HISTORY COMPARISON: CT LUNGSCREEN CT lung screening from 05/31/[address] abdomen pelvis wo con from 07/23/2018 TECHNIQUE: The exam was performed on a [employer] Speed [address] scanner using 2.90 mGy CTDI. A low dose helical CT CHEST was performed on a multi-detector scanner. All CT scans at the facility use one or more dose reduction, viz: automated exposure control, ma/kV adjustment per patient size (including targeted exams where dose is matched to indication, i.e. head), or iterative reconstruction technique. The LDCT was performed in a facility that meets the criteria for the screening program. Data regarding this exam was submitted to ACR which is an approved registry. The order for this exam indicates that it came as a result of a lung cancer screening counseling shard decision-making visit that included all the elements required of such a visit including smoking cessation. The radiologist interpreting this exam meets the CMS criteria for the LDCT lung cancer screening program. The exam is reported using the Lung-RADS classification scale and reported to the ACR registry. NOTE: This study was performed for the specific purposes of lung cancer screening and is not an alternative to diagnostic chest CT. RADIATION DOSE: CTDI vol(CT dose Index-volume) = 2.90mG DLP (Dose Length Product) = 100.55 mGcm Lung Rads Category: FINDINGS: COPD, centrilobular emphysema with scattered areas of scarring. Stable 3 mm nodule right upper lobe posteriorly image 33 series 3. Scarring in the left lung base posteriorly with pleural thickening not significantly changed. OTHER FINDINGS: Coronary artery calcifications. Right hydronephrosis versus parapelvic renal cyst IMPRESSION: Lung rads category [address] benign[address] annual LD [address] Coronary artery calcifications Right hydronephrosis versus parapelvic renal cyst Dictated by: Carmelo Cormier MD 06/14/2020 09:28 Carmelo Cormier MD in [place] 06/14/2020 09:28
== END ==
PROVIDERS: PCP Physician Assistant; Visit Provider Family Medicine
DX: Z87.891 Personal history of nicotine dependence (principal); Z12.2 Encounter for screening for malignant neoplasm of respiratory organs

== ENCOUNTER → 2020-06-21 12:59 | Outpatient (CLI) | payer SELFPAY ==
--- NOTE | 2020-06-21 13:06 | CT_ITS ---
PROCEDURE: CT HEART W CALCIUM SCORE CLINICAL HISTORY: SCREENING COMPARISON: CT ABDPELWO CT abdomen pelvis wo con from 07/23/[address] LUNG SCREENING from 06/07/2020 TECHNIQUE: Axial images obtained with sagittal and coronal reformats. All CT scans at the facility use one or more dose reduction, viz: automated exposure control, ma/kV adjustment per patient size (including targeted exams where dose is matched to indication, i.e. head), or iterative reconstruction technique. FINDINGS: Coronary artery calcium score is 1118. Extensive calcific plaque burden with very high cardiovascular disease risk. There is chronic pleural thickening in the left lung base posterior laterally with some parenchymal scarring. IMPRESSION: Extensive calcific plaque burden with very high cardiovascular disease risk Dictated by: Carmelo Cormier MD 06/22/2020 10:05 Carmelo Cormier MD in [place] 06/22/2020 10:05
== END ==
PROVIDERS: PCP Family Medicine; Visit Provider Family Medicine
DX: Z13.6 Encounter for screening for cardiovascular disorders (principal)
CPT/HCPCS: 75571

== ENCOUNTER → 2020-08-23 07:28 | Outpatient (CLI) | payer MEDICARE, SELFPAY ==
--- NOTE | 2020-08-23 | CA_ITS ---
APPROVED REPORT Exam: Exercise Treadmill Technologist: Naty Fournier Ht: 5 ft 1 in Wt: 140 lbs BSA: 1.62 m2 HR: 74 bpm BP: 135/61 mmHg Indications: Shortness of Breath Medical History Medications: Aspirin,,,,, Vitamin D3,,,,, Atorvastatin,,,,, Vitamin B,,,,, FluTICASONE,,,,, Pregabalin,,,,, Loperamide,,,,, Hydrocodone-Acetaminohen,,,,, Stress Test Details Test: Manual Treadmill HR Resting HR: 75 bpm Max Heart Rate (APMHR): 141 bpm Max HR Achieved: 130 bpm Target HR (85% APMHR): 119 bpm % of APMHR: 92 Recovery HR: 83 bpm BP Resting BP: 135.0/61.0 mmHg Max BP: 185.0/69.0 mmHg Recovery BP: 124.0/63.0 mmHg ECG Clinical Reason for Termination: Dyspnea Exercise duration: 05:03 min Highest Stage Achieved: Exercise capacity: 7.0 METs Stress ECG Conclusion Resting ECG: Normal sinus rhythm, NSST Abnormalities inferiorly - laterally. Patient walked 5 minutes. Test stopped due to shortness of air and legs tired. Symptoms: No chest pain Arrhythmias/Ectopy: Rare PVC during stress. Frequent in early recovery. ST-T Changes: 1.5 - 2.[address] segment depression infero-laterally Conclusion: Abnormal stress test. Patient exercised on a Lewis protocol (final minute modified) for 5 minutes to peak heart rate of 130 beats per minute (target heart rate 120 bpm) without chest pain. Baseline EKG in sinus with infero lateral ST segment abnormalities that were exacerbated during stress. PVC's noted during stress and more frequent in early recovery. Total METS acheived was 7.0 with peak blood pressure of 169/80 mm Hg. See the nuclear report for further information. Test Summary RECOVERY 02:00 0.0 0.0 98 . 169/ 80 . . REST . . . . . . . Standing REST 05:22 0.0 0.0 75 . 135/ 61 . . Stage 1 01:00 10.0 1.7 92 . . . . Stage 1 02:00 10.0 1.7 103 . . . . Stage 1 03:00 10.0 1.7 110 . 126/ 68 . . Stage 2 . . . . . . . Myoview Injected Stage 2 01:00 12.0 2.5 120 . . . . Stage 2 . . . . . . . Protocol changed to Manual Treadmill Stage 2 02:00 12.0 2.1 127 . . . . Stage 2 02:03 12.0 2.1 128 . . . Stop exercise at 05:03 RECOVERY 01:00 0.0 0.0 116 . 169/ 80 . . RECOVERY 02:00 0.0 0.0 98 . 169/ 80 . . RECOVERY 03:00 0.0 0.0 86 . 185/ 69 . . RECOVERY 04:00 0.0 0.0 83 . 185/ 69 . . RECOVERY 05:00 0.0 0.0 82 . 185/ 69 . . RECOVERY 06:00 0.0 0.0 81 . 185/ 69 . . RECOVERY 07:00 0.0 0.0 83 . 185/ 69 . . RECOVERY 07:35 0.0 0.0 83 . 185/ 69 . . Electronically signed by : Kali Vazquez, 08/23/2020 20:45:23
--- NOTE | 2020-08-23 07:28 | NM_ITS ---
APPROVED REPORT Exam: Nuclear Stress Test Indication: SOB, Tobacco use, Family history, Abnormal Calcium Score CT Patient Location: Outpatient Stress Tech: Naty Fournier NM Tech:Ludy Dallas, ARRT, RT (R)(N) Ht: 5 ft 1 in Wt: 136 lbs Bra Size: 38B HR: 74 bpm BP: 135/61 mmHg BSA: 1.60 m2 BMI: 25.6 History: SOB, Tobacco use, Family history, Abnormal Calcium Score CT Procedure: Patient exercised on Lewis protocol 5:00 minutes and sec, resting heart rate 74 bpm, resting blood pressure 135/61 mmHg, with exercise maximum heart rate achived was 130 bpm which is Greater than 85 % of the maximum predicted heart rate and blood pressure was 185/69 mmHg. Test was stopped due to SOA. Patient denied any complaint of chest pain. Patient has Adequate exercise capacity, achieved 7.0 METs of workload on treadmill, the blood pressure response to exercise was Adequate. Electrocardiogram Resting electrocardiogram showed sinus rhythm, with exercise there is less than 1.[address] segment depression noted from the baseline EKG. The EKG portion of the exercise Myoview is negative for ischemia. Cardiac Stress and Resting SPECT Images: Cardiac Stress and Resting SPECT images were obtained using technetium 99m Myoview 32.7 mCi stress and 10.02 mCi at rest. Gated SPECT for the analysis of segmental wall motion and calculation of the ejection fraction also done. Cardiac stress and resting SPECT images show uniform myocardial activity without segmental perfusion abnormality, computer derived ejection fraction is 60% with no regional wall motion abnormality, right ventricle is normal size and contractility. Conclusion: 1. The EKG portion of the exercise Myoview is negative for ischemia, patient has adequate exercise capacity achieved 7 mets of workload on treadmill, the blood pressure response to exercise was adequate, there was no exercise-induced chest discomfort. 2. No scintigraphic evidence of reversible ischemia seen, computer derived ejection fraction is 60% with no regional wall motion abnormality, right ventricle is normal size and contractility. 3. Normal exercise Myoview study. Electronically signed by : Kali Vazquez, 08/23/2020 21:19:13
--- NOTE | 2020-08-23 09:08 | HMH.ITSHM ---
Current Home Medications as stated by this patient Sandra Rivera or telesales representative. []ZOLPIDEM VITAMIN B PREGABALIN LOPERAMIDE HYDROCODONE NASAL SPRAY VITAMIN D3 ATORVASTATIN ASA
--- NOTE | 2020-08-23 09:17 | CA_ITS ---
APPROVED REPORT EXAM: Comprehensive 2D, Doppler, and color-flow Echocardiogram Score Caller: Tiffanie Reid RVT Ht: 5 ft 1 in Wt: 140lbs BSA: 1.62 BP: 142/70 mmHg Indications: SOA,DWAYNE,HLD,SMOKER,CALICUM SCORE OF 1100,LT MASECTOMY 2D Dimensions LVOT 1.27 cm (M/F) 1.5-2.5 M-Mode Dimensions RVDd 2.56 cm (0.9-2.6) LA Diam 3.28 cm (1.9-4.0) LVDd 3.14 cm (3.5-5.7) Ao Diam 2.52 cm (2.0-3.7) LVDs 1.74 cm (3.5-5.7) IVSd 1.34 cm (0.6-1.1) PWd 0.58 cm (0.6-1.1) EF (Teich) 77.20% FS 44.60% EDV (Teich) 39.10 mL ESV (Teich) 8.90 mL LV Diastology E Decel Time 150.00 (160-240 msec) E/A Ratio 0.7 MED E' 6.50 (< 7 cm/sec) E'/MED E' Ratio 6.57 (>14) LAT E' 9.10 (<10 cm/sec) E/LAT E' Ratio 4.69 (>14) Mitral Valve MV E Max Elvin. 43.00 (40-130 cm/s) MV A Velocity 66.00 (40-130 cm/s) E/A Ratio 0.65 MV Decel. Time 150.00 (160-240 ms) MV PHT 44.00 ms Pulmonary Valve PV Peak Velocity 85.00 (50-150 cm/s) Tricuspid Valve TR P. Velocity 265.00 cm/s Left Ventricle Left atrium is mildly enlarged, left ventricle is normal size, mild concentric left ventricular hypertrophy, visually estimated ejection fraction 55% with no regional wall motion abnormality, grade 1 diastolic dysfunction seen without tissue Doppler evidence of raise left atrial pressure. Right Ventricle Right atrium and right ventricle are normal size and contractility. Aortic Valve Aortic valve is minimally thickened and fibrosed, there is no aortic stenosis or aortic insufficiency. Mitral Valve Mitral valve is grossly normal, there is mild mitral regurgitation. Tricuspid Valve Tricuspid valve is grossly normal, there is mild tricuspid regurgitation, calculated right ventricular systolic pressure is within normal range. Pulmonic Valve Pulmonic valve is poorly visualized. Great Vessels Aortic root is normal size. Pericardium Small pericardial effusion noted. Conclusion 1. Mildly enlarged left atrium, normal left ventricular size, mild concentric left ventricular hypertrophy, visually estimated ejection fraction 55% with no regional wall motion abnormality, grade 1 diastolic dysfunction seen without tissue Doppler evidence of raise left atrial pressure. 2. Mild mitral and tricuspid regurgitation, calculated right ventricular systolic pressure within normal range. 3. Small circumferential pericardial effusion noted. Electronically signed by : Kali Vazquez, 08/23/2020 19:52:59
== END ==
PROVIDERS: PCP Family Medicine; Visit Provider Nurse Practitioner Family
DX: E78.5 Hyperlipidemia, unspecified (principal); F17.200 Nicotine dependence, unspecified, uncomplicated; I10 Essential (primary) hypertension; I25.10 Atherosclerotic heart disease of native coronary artery without angina pectoris; R06.00 Dyspnea, unspecified; R94.31 Abnormal electrocardiogram [ECG] [EKG]; Z82.49 Family history of ischemic heart disease and other diseases of the circulatory system
CPT/HCPCS: 78452; 93017; 93306; A9502

== ENCOUNTER → 2020-08-24 11:06 | Outpatient (POV) | payer MEDICARE, SELFPAY | PROVIDERS: Visit Provider Dermatology | DX: Z00.00 Encounter for general adult medical examination without abnormal findings (principal) ==

== ENCOUNTER → 2020-08-30 12:10 | Outpatient (CLI) | payer MEDICARE, SELFPAY ==
[2020-08-30 12:46] LABS: Basophils % 0.5 % (0.1-2.0); Eosinophils # 0.1 K/mm3 (0.0-0.4); Hematocrit 50.3 % (37.0-47.0); Hemoglobin 16.4 g/dL (12.2-16.2); Lymphocytes # 1.7 K/mm3 (0.7-4.5); Lymphocytes % 28.4 % (10-50); Mean Corpuscular HGB Conc 32.7 g/dL (31.8-35.4); Mean Corpuscular Hemoglobin 30.8 pg (27.0-31.2); Mean Platelet Volume 8.4 fl (7.4-10.4); Monocytes # 0.4 K/mm3 (0.1-1.0); Monocytes % 5.8 % (1.7-9.3); Neutrophils # 3.8 K/mm3 (1.8-7.8); Neutrophils % 63.2 % (37.0-80.0); Platelet Count 177 K/mm3 (142-424); Red Blood Count 5.35 M/mm3 (4.20-5.40); Red Cell Distribution Width 13.7 % (11.5-17.5); White Blood Count 6.1 K/mm3 (4.8-10.8)
[2020-08-30 13:15] LABS: Chloride 104 mmol/L (98-107); Potassium 3.9 mmoL/L (3.5-5.1); Sodium 143 mmol/L (136-145)
[2020-08-30 13:17] LABS: Blood Urea Nitrogen 17 mg/dl (7-17); Estimated Glomerular Filt Rate 96 ml/min (>60); GFR (African American) 117 ML/MIN (>60)
[2020-08-30 13:18] LABS: Anion Gap 12.9 mEq/L (5-15); Calcium 9.7 mg/dl (8.4-10.2); Carbon Dioxide 30 mmol/L (22.0-30.0); Glucose 97 mg/dl (74-100)
[2020-08-30 15:00] LABS: Coronavirus 19 IgG Antibody Negative (Negative); Coronavirus 19 IgM Antibody Negative (Negative)
== END ==
PROVIDERS: Visit Provider Internal Medicine
DX: Z01.818 Encounter for other preprocedural examination (principal); R06.00 Dyspnea, unspecified
CPT/HCPCS: 36415; 80048; 85025; 86328

== ENCOUNTER 2020-09-01 08:36 | Day surgery (SDC) | payer MEDICARE, SELFPAY ==
[2020-09-01] VITALS (11 sets, daily range): BP systolic 128–160; BP diastolic 57–88; PULSE 59–78; RESP 16–18; TEMP 36.6–36.8; O2SAT 90–97; BMI 26.2
--- NOTE | 2020-09-01 | IR_ITS ---
APPROVED REPORT Patient Location: Outpatient Staff Physical Therapist: ESTEPHANIA Walsh RT (R) PROCEDURES Left heart catheterization Left ventriculogram Selective coronary angiogram INDICATION Preoperative evaluation, Calcium score 1100 Informed consent was obtained prior to the procedure. COMPLICATIONS NONE Estimated Blood Loss: LESS THAN 10 ML TECHNIQUE One percent lidocaine used to anesthetize the right anterior aspect of the wrist. The right radial artery was accessed via the Seldinger technique. A 6 Occitan sheath was placed in the right radial artery. 2.5 mg of verapamil, 800 mcg of nitroglycerin, 1mg Lidocaine and 5000 U Heparin were given through the arterial sheath. The 4 Occitan JL4 and JR4 catheter were used to perform left heart catheterization, left ventriculogram and selective coronary angiogram. At the end of the procedure the sheath was removed good hemostasis was achieved using Traclet band, patient was transferred to the postop holding area in stable condition. ANGIOGRAPHIC RESULTS The left main artery Normal The left anterior descending artery Has calcification in the proximal segment with minimal intraluminal stenosis of 10 to 20% there is a mid vessel 30 to 40% concentric smooth calcified stenosis The circumflex artery Is nondominant and has proximal concentric calcified 20 to 30% smooth stenosis The right coronary artery Is a large dominant vessel and has proximal 10 to 20% stenosis with a mid vessel 40 to 50% calcified mostly eccentric stenosis which extends into a distal 30% stenosis the posterior descending artery has proximal 10% stenosis The BECKETT ventriculogram reveals Normal 65% The left ventricular end-diastolic pressure 10 mmHg IMPRESSION Coronary disease as described above Normal ejection fraction Normal left ventricular end-diastolic pressure PLAN 1. At worst patient has single-vessel coronary artery disease which is best managed medically. Given her normal stress test she is a low risk from a cardiac standpoint to proceed with elective surgery/colonoscopy 2. The right coronary artery lesion is ideal for medical management 3. Maximize antianginal medications and treat hypertension Electronically signed by : Zak Rosas, 09/01/2020 10:40:51
== END 2020-09-01 13:08 | disposition home or self-care (01) ==
LOC: CATHLAB 08:38
PROVIDERS: PCP Family Medicine; Visit Provider Internal Medicine
DX: R94.39 Abnormal result of other cardiovascular function study (principal); I25.10 Atherosclerotic heart disease of native coronary artery without angina pectoris; I10 Essential (primary) hypertension; Z72.0 Tobacco use; E78.5 Hyperlipidemia, unspecified; Z82.49 Family history of ischemic heart disease and other diseases of the circulatory system; Z79.899 Other long term (current) drug therapy
CPT/HCPCS: 93458; 99152; C1725; C1769; J1644; Q9967

== ENCOUNTER → 2020-09-05 08:22 | Outpatient (CLI) | payer MEDICARE, SELFPAY ==
[2020-09-05 10:30] LABS: Coronavirus 19 IgG Antibody Negative (Negative); Coronavirus 19 IgM Antibody Negative (Negative)
== END ==
PROVIDERS: Visit Provider Internal Medicine Gastroenterology
DX: Z01.818 Encounter for other preprocedural examination (principal); Z12.11 Encounter for screening for malignant neoplasm of colon
CPT/HCPCS: 36415; 86328

== ENCOUNTER 2020-09-06 09:26 | Day surgery (SDC) | payer MEDICARE, SELFPAY ==
[2020-08-31 11:10] VITALS: BMI 25.7
[2020-09-06 09:43] VITALS: BP 155/70; PULSE 84; RESP 18; TEMP 36.3; O2SAT 97
--- NOTE | 2020-09-06 10:11 | P.PN_ITS ---
[facility] Anesthesia Checklist - Patient Identification Patient Identification: Arm Band - Structural Data Admitted From: Home Planned Operative Procedure/s: colonoscopy Consent for Planned Operative Procedure(s) Verified: Yes Verified Documents: Surgical Consent, History and Physical - NPO Status Verified Time NPO: 00:00 - Additional verifications Anesthesia Reactions: No - Airway Assessment C-Spine Mobility Assessed: Yes (mp3) TMJ Mobility Assessed: Yes Dentition: Good Dentition - Neurological Assessment Level of Consciousness: Awake, Alert - Anesthesia Plan Anesthesia Risk discussed: Yes Anesthesia Plan: Verified ASA Class: III Anesthesia Type: MAC [facility] History I have reviewed the patient's past medical history: Yes Medical History: Reports:: Aneurysm, Chronic Obstructive Pulmonary Disease (COPD), Hyperlipidemia, Hypertension, Kidney Stones, Migraine, Renal Disease Denies:: Cancer, Diabetes Mellitus Type 1, Diabetes Mellitus Type 2, Internal Pacemaker, MRSA, Seizures *Have you ever received a pneumonia vaccine?: Yes *Have you received a flu vaccine this season?: Yes Other Medical History: Reports: Arthritis, Cataracts, Other Anesthesia experience/problems:: nac Laterality Cases: Left: Mastectomy, Bilateral: Tonsillectomy Other Surgeries: Yes: Tubal Ligation, Other (Lithotripsy, bilateral eye lift x4, mastectomy repair 2011, bunionectomy 2012, no surgery, cataracts removed, abdominal aneurysm repair March 2018). No: Pacemaker Amputation: No Fractures: No - *Social History Last grade of school completed: Some college Smoking Status: Current every day smoker Tobacco Type: cigarettes # Packs/Day (cigarettes): 1 Alcohol Intake: never Alcohol Intake Frequency:: a few times a month Substance Use Type: denies use *Occupational Status:: retired Housing: house Household Members: other *Travel in the last 8 weeks: None Family Hx:: Coronary Artery Disease
[2020-09-06 10:42] VITALS: O2SAT 97
[2020-09-06 11:15] VITALS: BP 83/43; PULSE 70; RESP 12; TEMP 36.1; O2SAT 97
--- NOTE | 2020-09-06 11:18 | HMH.PROC ---
[facility] Procedure Note Procedure Note:: Colonoscopy Procedure Report: Colonoscopy with cold snare polypectomy Endoscopist: Samir Riley II, MD Referring physician: Chip Ledezma MD Date of Procedure: September 06, 2020 Equipment: Olympus 180 variable stiffness pediatric colonoscope Sedation: MAC sedation Indication: Mrs. Rivera is a 80-year-old female here for diagnostic colonoscopy secondary to a positive Cologuard test. She did have a colonoscopy with ri 15 years ago and then had 1 since that time. She does get diarrhea once a week. She reports no rectal bleeding or melena. She reports no abdominal pain, weight loss, change in bowel function or family history of colon cancer. Procedure: Prior to the procedure, a history and physical exam was performed, and patient's medications and allergies were reviewed. The risks, benefits and alternatives of the sedation and procedure were discussed with the patient. All questions were answered and informed consent was obtained. The patient was brought to the procedure room. Patient identification and proposed procedure were verified by the physician and the nurse. The patient was placed in a left lateral decubitus position and the scope was passed under direct vision. Throughout the procedure, the patient's blood pressure, pulse, and oxygen saturations were monitored continuously. The colonoscopy was accomplished without difficulty. The patient tolerated the procedure well. Findings: On digital rectal examination there was normal rectal tone. There were no external hemorrhoids. The colonoscope was introduced through the anal canal to the rectum and advanced to the cecum. The ileocecal valve and appendiceal orifice were identified. The scope was advanced a short distance into the ileum which appeared grossly normal. The scope was then withdrawn into the colon. There were a total of 8 colon polyps (cecum x3 (19 mm, 6 mm and 4 mm), transverse x2 (4 and 7 mm) and descending x3 (5, 5 and 7 mm)) which were all removed via cold snare polypectomy. There were scattered nonbleeding angiodysplasias of the right colon. There were scattered diverticuli throughout the descending and sigmoid colon (LEFT colon). The rectum itself was normal. Upon retroflexion within the rectum there were grade 1-2 internal hemorrhoids. The preparation was excellent throughout with Cabool Preparation Score of 9. The cecal time was 13 minutes. Impression: 1. Colonic polyps x8 2. Right colonic angiodysplasias (nonbleeding) 3. Left-sided diverticulosis 4. Grade 1-2 internal hemorrhoids Plan: I will follow up the polyp histology and determine whether further surveillance is warranted based upon the number and size of adenomatous polyps. I would encourage bulk fiber supplementation (FiberCon), dietary measures and probiotic.
[2020-09-06 11:25] VITALS: BP 78/45; PULSE 77; RESP 16; O2SAT 93
[2020-09-06 11:35] VITALS: BP 104/51; PULSE 75; RESP 16; O2SAT 91
[2020-09-06 11:45] VITALS: BP 129/65; PULSE 81; RESP 16; TEMP 36.1; O2SAT 95
== END 2020-09-06 11:52 | disposition home or self-care (01) ==
LOC: OUTP 09:27
PROVIDERS: PCP Family Medicine; Visit Provider Internal Medicine Gastroenterology
PROC: 0DJD8ZZ Inspection of Lower Intestinal Tract, Via Natural or Artificial Opening Endoscopic (ICD-10-PCS; CPT 45378; principal; 2020-09-06 10:30)
DX: K63.5 Polyp of colon (principal); K55.20 Angiodysplasia of colon without hemorrhage; K57.30 Diverticulosis of large intestine without perforation or abscess without bleeding; K64.0 First degree hemorrhoids; J44.9 Chronic obstructive pulmonary disease, unspecified; E78.5 Hyperlipidemia, unspecified; Z87.442 Personal history of urinary calculi; Z88.6 Allergy status to analgesic agent; Z91.048 Other nonmedicinal substance allergy status; Z79.899 Other long term (current) drug therapy
CPT/HCPCS: 45385; 88305

== ENCOUNTER → 2020-09-27 09:20 | Outpatient (POV) | payer MEDICARE, SELFPAY ==
[2020-09-27 09:33] VITALS: BP 132/74; PULSE 74; RESP 18; TEMP 36.2; O2SAT 98; BMI 25.3
--- NOTE | 2020-09-27 09:46 | HMH.PAINSOAP ---
[facility] Pain Management SOAP Note Subjective:: Patient is a pleasant 80-year-old white female who presents today for Acacian refills. She is being treated for pain secondary to degenerative disc disease lumbar spine lumbar radiculopathy symptoms along with neuropathy PT secondary to mastectomy. Patient is currently on Lyrica 150 mg 1 tab p.o. twice a day and [place] 7.5 mg 1 p.o. 3 times daily. She denies side effects to her medication. Lauri #[id number] reviewed and appropriate. ROS General: no recent weight change, no fever, no sleep disturbances Respiratory: no cough, no shortness of air, no recurring pulmonary infections Cardiovascular/Peripheral Vascular: No chest pain, No palpitations, no edema, no shortness of breath. Gastrointestinal: no new onset incontinence, normal bowel movements reported Genitourinary: no new onset incontinence Musculoskeletal: Back pain, left-sided chest wall pain secondary to mastectomy Psychiatric: normal mood/ affect Neurological: [denies new onset weakness in extremities], [denies new onset balance issues] Objective:: Physical Exam General: Alert and oriented x3, no acute distress, pleasant and cooperative, [on room air] Lungs: Resps E/U, Symmetrical chest expansion, Eyes: PERRL Musculoskeletal: Flexion and extension of lumbar spine somewhat guarded secondary to pain, deep tendon reflexes normal, strength in upper and lower extremities [5/5], slightly antalgic gait noted Neurological: speech clear, station jailer equal, no gross sensory deficits Assessment:: Degenerative disc disease lumbar spine lumbar radiculopathy, chest wall pain, neuropathy Plan:: We will continue her [place] 7.5 mg 1 p.o. 3 times daily and Lyrica 150 mg 1 p.o. twice daily. We will see her back in 3 months reassess her symptoms at that time she has been instructed to call the office if she has any issues prior to her next appointment. Dr. Craven has reviewed this note and agrees with this plan of care. This note was dictated using voice recognition software and may contain errors or omissions Patient has been prescribed a controlled substance after being counseled on the medication, medication safety, and possible side effects. [facility] report has been obtained and reviewed prior to prescription and found to be appropriate. Opioid contract was reviewed and signed by the patient, and that they have agreed to all of the terms set forth by our compliance program. [facility] History I have reviewed the patient's past medical history: Yes Medical History: Reports:: Aneurysm, Chronic Obstructive Pulmonary Disease (COPD), Coronary Artery Disease, Hyperlipidemia, Hypertension, Kidney Stones, Migraine, Renal Disease Denies:: Cancer, Diabetes Mellitus Type 1, Diabetes Mellitus Type 2, Internal Pacemaker, MRSA, Seizures *Have you ever received a pneumonia vaccine?: Yes *Have you received a flu vaccine this season?: Yes Other Medical History: Reports: Arthritis, Cataracts, Other Laterality Cases: Left: Mastectomy, Bilateral: Tonsillectomy Other Surgeries: Yes: Cardiac Catheterization, Tubal Ligation, Other (Lithotripsy, bilateral eye lift x4, mastectomy repair 2011, bunionectomy 2012, no surgery, cataracts removed, abdominal aneurysm repair March 2018). No: Pacemaker Amputation: No Fractures: No - *Social History Smoking Status: Current every day smoker Tobacco Type: cigarettes # Packs/Day (cigarettes): 1 Alcohol Intake: never Alcohol Intake Frequency:: a few times a month Substance Use Type: denies use *Occupational Status:: other Housing: house Household Members: other *Travel in the last 8 weeks: None Family Hx:: Coronary Artery Disease
== END ==
PROVIDERS: PCP Family Medicine; Visit Provider Clinical Nurse Specialist Family Health
DX: M51.16 Intervertebral disc disorders with radiculopathy, lumbar region (principal); R07.89 Other chest pain; G62.9 Polyneuropathy, unspecified
CPT/HCPCS: 99212

== ENCOUNTER → 2021-01-03 10:22 | Outpatient (POV) | payer MEDICARE, SELFPAY ==
--- NOTE | 2021-01-03 10:35 | HMH.PAINSOAP ---
[facility] Pain Management SOAP Note Subjective:: Patient is a pleasant 80-year-old white female here today for medication refills. She is currently being treated for pain secondary to degenerative disc disease, lumbar spine radiculopathy. States that she has had a mastectomy approximately 20 years ago on the left breast she continues to have nerve pain from that incision. She is currently being prescribed Lyrica 150 mg twice daily and [place] 7.5 mg 1 p.o. 3 times daily. She denies any side effects from the medication. She does continue to have low back pain as well as left breast pain. [facility] reviewed and appropriate. ROS General: no recent weight change, no fever, no sleep disturbances Respiratory: no cough, no shortness of air, no recurring pulmonary infections Cardiovascular/Peripheral Vascular: No chest pain, No palpitations, no edema, no shortness of breath. Gastrointestinal: no new onset incontinence, normal bowel movements reported Genitourinary: no new onset incontinence Musculoskeletal: Low back pain, left chest pain Psychiatric: normal mood/ affect, [denies depression], [denies anxiety] Neurological: [denies new onset weakness in extremities], [denies new onset balance issues] Objective:: Physical Exam General: Alert and oriented x3, no acute distress, pleasant and cooperative, [on room air] Lungs: Resps E/U, Symmetrical chest expansion, [CTA bilateral] Eyes: PERRL Musculoskeletal: Flexion and extension of lumbar spine somewhat guarded secondary to pain, deep tendon reflexes normal, strength in upper and lower extremities [5/5], [abnormal gait noted], tenderness to palpation over incision of the left breast mastectomy site Neurological: speech clear, back padder equal, no gross sensory deficits Assessment:: Degenerative disc disease lumbar spine, lumbar radiculopathy, chest wall pain, intercostal neuropathy Plan:: We will continue her [place] 7.5 p.o. 3 times daily and Lyrica 150 mg twice daily. We will also schedule her for a peripheral nerve block of the left chest. Procedure, risk, benefits were explained to the patient. She wants to proceed with the injection. We will see her back in 3 months for follow-up and medication refills. She is welcome to contact the clinic prior to her next appointment if she has any concerns. Dr. Craven has reviewed this note and agrees with this plan of care. This note was dictated using voice recognition software and may contain errors or omissions [facility] History I have reviewed the patient's past medical history: Yes Medical History: Reports:: Aneurysm, Cancer, Chronic Obstructive Pulmonary Disease (COPD), Coronary Artery Disease, Hyperlipidemia, Hypertension, Kidney Stones, Migraine, Renal Disease Denies:: Diabetes Mellitus Type 1, Diabetes Mellitus Type 2, Internal Pacemaker, MRSA, Seizures *Have you ever received a pneumonia vaccine?: Yes *Have you received a flu vaccine this season?: Yes Other Medical History: Reports: Arthritis, Cataracts, Other Laterality Cases: Left: Mastectomy, Bilateral: Tonsillectomy Other Surgeries: Yes: Cancer Surgery, Cardiac Catheterization, Colonoscopy, Tubal Ligation, Other (Lithotripsy, bilateral eye lift x4, mastectomy repair 2011, bunionectomy 2012, no surgery, cataracts removed, abdominal aneurysm repair March 2018). No: Pacemaker Amputation: No Fractures: No - *Social History Smoking Status: Current every day smoker Tobacco Type: cigarettes # Packs/Day (cigarettes): 1 Alcohol Intake: current Alcohol Intake Frequency:: a few times a month Substance Use Type: denies use *Occupational Status:: other Housing: house Household Members: other *Travel in the last 8 weeks: None Family Hx:: Coronary Artery Disease
[2021-01-03 10:40] VITALS: BP 125/77; PULSE 74; RESP 18; O2SAT 98; BMI 26.2
== END ==
PROVIDERS: PCP Family Medicine; Visit Provider Clinical Nurse Specialist Family Health
DX: M51.16 Intervertebral disc disorders with radiculopathy, lumbar region (principal); G58.0 Intercostal neuropathy
CPT/HCPCS: 99212; G0463

== ENCOUNTER 2021-01-07 10:37 | Day surgery (SDC) | payer MEDICARE, SELFPAY ==
[2021-01-07 10:55] VITALS: BP 136/70; PULSE 81; RESP 18; TEMP 36.7; O2SAT 98; BMI 25.3
[2021-01-07 11:53] VITALS: BP 135/85; PULSE 74; RESP 18
[2021-01-07 11:54] VITALS: BP 140/71; PULSE 72; RESP 18; O2SAT 99
--- NOTE | 2021-01-07 12:00 | P.PCN_ITS ---
- Procedure Date: 01/07/21 Time: 12:00 Anesthesiologist:: Braxton Craven MD Complications:: None Pre-procedure Diagnosis:: Left chest wall pain status post mastectomy Post-procedure Diagnosis:: Same Indications for Procedure:: Patient is a pleasant 80-year-old white female who has left-sided chest wall pain in the scar from her previous mastectomy several years ago. Chest wall pain has been present since her mastectomy and worsened over the last few months. Procedure Details:: Peripheral nerve block Informed consent was obtained and the risk and benefits of the procedure were explained to the patient. Patient was taken the procedure room. Left chest wall was prepped using ChloraPrep. A 25-gauge needle was inserted subcutaneous to the previous mastectomy scar. We injected 10 mL bupivacaine 0.25% and Depo- Medrol 40 mg subcutaneous to this previous mastectomy scar on left chest wall. Patient tolerated procedure well with no complications. Plan and Disposition:: We will follow-up with her in 2 weeks. Will reevaluate her symptoms at that time.
[2021-01-07 12:04] VITALS: BP 140/65; PULSE 75; RESP 18; O2SAT 98
== END 2021-01-07 12:06 | disposition home or self-care (01) ==
LOC: SC.PAINP 10:38
PROVIDERS: PCP Family Medicine; Visit Provider Anesthesiology
DX: R07.89 Other chest pain (principal); Z90.10 Acquired absence of unspecified breast and nipple; E78.5 Hyperlipidemia, unspecified; Z85.3 Personal history of malignant neoplasm of breast; Z72.0 Tobacco use; F41.9 Anxiety disorder, unspecified; F32.9 Major depressive disorder, single episode, unspecified; G43.909 Migraine, unspecified, not intractable, without status migrainosus; Z88.1 Allergy status to other antibiotic agents; Z91.048 Other nonmedicinal substance allergy status; Z79.899 Other long term (current) drug therapy
CPT/HCPCS: 64450; J1040

== ENCOUNTER → 2021-01-10 13:11 | Outpatient (CLI) | payer MEDICARE, SELFPAY ==
--- NOTE | 2021-01-10 13:22 | XR_ITS ---
PROCEDURE: XR DEXA AXIAL SKELETON CLINICAL HISTORY: OSTEOPENIA COMPARISON: CR DEXAAX XR DEXA axial skeleton from 09/23/2018 FINDINGS: The right hip BMD is 0.599 with a T-score of -2.3. The left hip BMD is 0.613 with a T-score of -2.1. The right forearm BMD is 0.489 with a T-score of -3.4. Previously the lowest density was in the left hip with a T-score of -2.0 IMPRESSION: This patient is considered osteoporotic according to the World Health Organization criteria. Fracture risk is high. Treatment is advised. Based on these results a follow-up exam is recommended in 1 year. Dictated by: Carmelo Cormier MD 01/11/2021 08:56 Carmelo Cormier MD in [place] 01/11/2021 08:56
== END ==
PROVIDERS: PCP Family Medicine; Visit Provider Family Medicine
DX: M85.89 Other specified disorders of bone density and structure, multiple sites (principal)
CPT/HCPCS: 77080

== ENCOUNTER → 2021-02-01 10:03 | Outpatient (POV) | payer MEDICARE, SELFPAY | PROVIDERS: Visit Provider Dermatology | DX: Z00.00 Encounter for general adult medical examination without abnormal findings (principal) ==

== ENCOUNTER → 2021-02-03 10:53 | Outpatient (POV) | payer MEDICARE, SELFPAY ==
[2021-02-03 11:10] VITALS: BP 132/71; PULSE 68; RESP 18; O2SAT 98; BMI 25.9
--- NOTE | 2021-02-03 11:11 | P.CONS_ITS ---
[facility] Pain Management SOAP Note Subjective:: Patient is a pleasant 80-year-old white female who presents today for follow-up after peripheral nerve block. Patient did not get any relief from this. She did not find it beneficial. Patient rates her pain today a 2 out of 10. She is currently medically managed with Phoenix and Lyrica. Overall doing well with this. Lauri #[id number] reviewed and appropriate she does not need any refills today. ROS General: no recent weight change, no fever, no sleep disturbances Respiratory: no cough, no shortness of air, no recurring pulmonary infections Cardiovascular/Peripheral Vascular: No chest pain, No palpitations, no edema, no shortness of breath. Gastrointestinal: no new onset incontinence, normal bowel movements reported Genitourinary: no new onset incontinence Musculoskeletal: Chest wall pain status postmastectomy Psychiatric: normal mood/ affect Neurological: [denies new onset weakness in extremities], [denies new onset balance issues] Objective:: Physical Exam General: Alert and oriented x3, no acute distress, pleasant and cooperative, [on room air] Lungs: Resps E/U, Symmetrical chest expansion, Eyes: PERRL Musculoskeletal: Flexion and extension of thoracic spine somewhat guarded secondary to pain, deep tendon reflexes normal, strength in upper and lower extremities [5/5], lightly antalgic gait noted Neurological: speech clear, risk control product liability director equal, no gross sensory deficits Assessment:: Left chest wall pain status post mastectomy Plan:: We will continue her Phoenix and her Lyrica she does not need refills at this time. She has been instructed to call the office if she has any issues prior to her next appointment we will see her back in [address] Craven has reviewed this note and agrees with this plan of care. This note was dictated using voice recognition software and may contain errors or omissions [facility] History I have reviewed the patient's past medical history: Yes Medical History: Reports:: Aneurysm, Cancer, Chronic Obstructive Pulmonary Disease (COPD), Coronary Artery Disease, Hyperlipidemia, Hypertension, Kidney Stones, Migraine, Renal Disease Denies:: Diabetes Mellitus Type 1, Diabetes Mellitus Type 2, Internal Pacemaker, MRSA, Seizures *Have you ever received a pneumonia vaccine?: Yes *Have you received a flu vaccine this season?: Yes Other Medical History: Reports: Arthritis, Cataracts, Other. Denies: Blood Transfusion Reaction. Comment Only: Glaucoma (macular degeneration) Laterality Cases: Left: Mastectomy, Bilateral: Tonsillectomy Other Surgeries: Yes: Cancer Surgery (breast), Cardiac Catheterization, Colonoscopy, Tubal Ligation, Other (Lithotripsy, bilateral eye lift x4, mastectomy repair 2011, bunionectomy 2012, no surgery, cataracts removed, abdominal aneurysm repair March 2018). No: Pacemaker Amputation: No Fractures: No - *Social History Smoking Status: Current every day smoker Tobacco Type: cigarettes # Packs/Day (cigarettes): 1 Alcohol Intake: never Alcohol Intake Frequency:: a few times a month Substance Use Type: denies use *Occupational Status:: retired Housing: house Household Members: significant other *Travel in the last 8 weeks: None Family Hx:: Coronary Artery Disease
== END ==
PROVIDERS: PCP Family Medicine; Visit Provider Clinical Nurse Specialist Family Health
DX: R07.89 Other chest pain (principal); Z90.10 Acquired absence of unspecified breast and nipple
CPT/HCPCS: 99212; G0463

== ENCOUNTER → 2021-02-09 11:25 | Outpatient (CLI) | payer MEDICARE, SELFPAY ==
[2021-02-09 11:31] VITALS: BMI 26.4
[2021-02-09 11:45] LABS: Albumin Level 4.5 g/dl (3.5-5.0)
[2021-02-09 11:48] LABS: Calcium 9.4 mg/dl (8.4-10.2)
[2021-02-09 12:11] LABS: Creatinine Clearance Estimated 44 mL/min (50-200); Estimated Glomerular Filt Rate 96 ml/min (>60); GFR (African American) 117 ML/MIN (>60)
[2021-02-09 12:44] VITALS: BP 134/65; PULSE 71; RESP 18; TEMP 36.4; O2SAT 96
[2021-02-09 13:04] VITALS: BP 126/68; PULSE 69; RESP 18
== END ==
PROVIDERS: Visit Provider Family Medicine
DX: M85.89 Other specified disorders of bone density and structure, multiple sites (principal)
CPT/HCPCS: 82040; 82310; 82565; 96374; J3489

== ENCOUNTER → 2021-03-03 15:45 | Outpatient (CLI) | payer MEDICARE, SELFPAY ==
--- NOTE | 2021-03-03 15:47 | XR_ITS ---
PROCEDURE: XR KUB CLINICAL INDICATION: hematuria COMPARISON: CT ABDPELWO CT abdomen pelvis wo con from 07/23/2018 FINDINGS: There is an aortoiliac stent graft present. A 10 by 5 mm calcific density is present to the right of the L3 transverse process consistent with a proximal ureteral stone. Bilateral renal calculi are present measuring 4 mm in the lower pole on the right with cluster small stones measuring 6 mm in the lower pole on the left. Vascular calcifications are present. No acute bony findings are apparent. IMPRESSION: Bilateral nephrolithiasis with proximal right ureteral stone Dictated by: Carmelo Cormier MD 03/03/2021 16:28 Carmelo Cormier MD in [place] 03/03/2021 16:28
== END ==
PROVIDERS: PCP Family Medicine; Visit Provider Urology
DX: R31.9 Hematuria, unspecified (principal)
CPT/HCPCS: 74018; 87086; 87088; 87186

== ENCOUNTER → 2021-03-03 16:12 | Outpatient (CLI) | payer MEDICARE, SELFPAY | PROVIDERS: Visit Provider Urology | DX: N20.0 Calculus of kidney (principal) | CPT/HCPCS: 87086 ==

== ENCOUNTER 2021-03-12 16:34 | Emergency (ER) | payer MEDICARE, SELFPAY ==
[2021-03-12 16:50] VITALS: BP 122/52; PULSE 66; RESP 18; TEMP 36.4; O2SAT 98; BMI 24.7
[2021-03-12 16:55] VITALS: BP 119/54; PULSE 69; RESP 17; TEMP 36.6
--- NOTE | 2021-03-12 17:12 | HMH.EDUTC ---
[facility] Disposition Clinical Impression: Encounter for laboratory testing for COVID-19 virus Disposition: Home, Self-Care Condition on Discharge: Good Instructions: COVID-19 Viral Test Additional Instructions: You were tested for today for COVID19 your test result should be back in the next 24-48 hours, you may call to the [facility] to see if your test results are back in the next 48 hours [phone] [facility] hours are 9am-9pm You was given a handout with instructions for Self Quarantine and Self isolation for while you wait on test results and what to do if they are positive If you are positive the Health Dept will be contacting you also Referrals: Chip Ledezma MD [Primary Care Provider] - As needed Time of Disposition: 17:14 Medical Decision Making - Lauri Inquiry Pt receiving controlled substance: No Lauri was queried for this patient: No Vital Signs: 03/12/21 16:50 03/12/21 16:55 Temperature 97.6 F 98 F Temperature Source Tympanic Pulse Rate 69 Pulse Rate [Left] 66 Respiratory Rate 18 17 Blood Pressure 119/54 L Blood Pressure [Right Arm] 122/52 L Blood Pressure Mean [Right Arm] 75 Blood Pressure Source [Right Arm] Automatic Cuff Blood Pressure Position [Right Arm] Sitting 02 Sat by Pulse Oximetry 98 Oxygen Delivery Method Room Air Orders (Tests/Meds): ORDERS Category Date Time Status Covid-19 Nasal PCR ([facility]) Routine Lab 03/12/21 16:40 Received [facility] HPI - General Stated complaint: covid test Time Seen by Provider: 03/12/21 17:12 Mode of Arrival: Ambulatory Source of Information: Patient Limitations: No Limitations Description of Symptoms (Recalled from Triage Doc. by RN): pt needs a covid test for a procedure. pt is asymptomatic. HEENT Symptoms (Recalled from RN notes): No Resp Symptoms (Recalled from RN notes): No Skin Symptoms (Recalled from RN notes): No MS Symptoms (Recalled from RN notes): No Functional Status (Recalled from RN notes): na - History of Present Illness Provider Complaint: Patient states that she has to have COVID test done prior to having procedure done next week Denies any symptoms or known exposure - Related Data Home Medications Medication Instructions Recorded Confirmed cholecalciferol (vitamin D3) 125 5,000 unit PO DAILY cap 01/17/18 03/11/21 mcg (5,000 unit) capsule cranberry 400 mg capsule 400 mg PO ONCE 01/17/18 03/11/21 fluticasone propionate 50 1 spray INTRANASAL BID PRN 01/17/18 03/11/21 mcg/actuation nasal spray,suspension vitamin B complex 1 tab PO ONCE 01/17/18 03/11/21 zolpidem 5 mg tablet 5 mg PO HS PRN 01/17/18 03/11/21 Atorvastatin Calcium [Lipitor 40mg 40 mg PO DAILY 08/31/20 03/11/21 Tab] Glucosam/Chond/Collagen/Hyalur 1 each PO DAILY 08/31/20 03/11/21 [Glucosamine Chondroitin Cap] SUMAtriptan succinate [Imitrex] 50 mg PO NEEDED PRN 08/31/20 03/11/21 Pregabalin [Lyrica 150mg Cap] 150 mg PO BID 01/07/21 03/11/21 Aspirin [Adult Low Dose Aspirin EC] 81 mg PO DAILY 02/09/21 03/11/21 Previous Rx's Medication Instructions Recorded Hydrocodone/Acetaminophen [Olney 1 tab PO TID PRN #90 tab 08/27/20 7.5-325 Tablet] Hydrocodone/Acetaminophen 1 each PO TID #90 tab 02/24/21 [Hydrocodon-Acetaminoph 7.5-325] Pregabalin [Lyrica 150mg Cap] 150 mg PO BID #60 cap 02/24/21 Allergies Allergy/AdvReac Type Severity Reaction Status Date / Time ADHESIVE TAPE Allergy Unknown Uncoded 03/11/21 14:57 NAPROSIN Allergy Unknown Uncoded 03/11/21 14:57 - Worker's Comp Is this a Worker's Comp case?: No [facility] History - Hepatitis A Screen Drug use history?: No High risk sexual behaviors?: No History of sexually transmitted infection?: No Currently employed?: No Childcare worker?: No Do you have indoor plumbing?: Yes Do you have electricity?: Yes Attestation statement:: This patient has been screened for Hepatitis A risk factors. I have reviewed the patient's past medical history: Yes Medical History:
== END 2021-03-12 17:13 | disposition home or self-care (01) ==
PROVIDERS: Emergency Provider Nurse Practitioner; PCP Family Medicine
DX: Z11.52 Encounter for screening for COVID-19 (principal)
CPT/HCPCS: G0463; 99202; U0003

== ENCOUNTER 2021-03-14 10:43 | Day surgery (SDC) | payer MEDICARE, SELFPAY ==
[2021-03-14] VITALS (9 sets, daily range): BP systolic 116–151; BP diastolic 70–87; PULSE 62–88; RESP 16–20; TEMP 36.2–36.6; O2SAT 92–100; BMI 24.6
--- NOTE | 2021-03-14 12:32 | P.PN_ITS ---
[facility] Anesthesia Checklist - Patient Identification Patient Identification: Arm Band - Structural Data Admitted From: Home Planned Operative Procedure/s: Cystoscopy with stent placement Consent for Planned Operative Procedure(s) Verified: Yes - NPO Status Verified Time NPO: 00:00 - Additional verifications Anesthesia Reactions: No Hx Blood Transfusions: No Blood Transfusion Reaction: No - Airway Assessment C-Spine Mobility Assessed: Yes TMJ Mobility Assessed: Yes Dentition: Good Dentition - Neurological Assessment Level of Consciousness: Awake Hx Seizures: No Numbness or tingling in extremities: No - Anesthesia Plan Anesthesia Risk discussed: Yes Anesthesia Plan: Verified ASA Class: III Anesthesia Type: General [facility] History I have reviewed the patient's past medical history: Yes Medical History: Reports:: Aneurysm, Cancer (breast), Chronic Obstructive Pulmonary Disease (COPD), Coronary Artery Disease, Hyperlipidemia, Hypertension, Kidney Stones, Migraine, Renal Disease Denies:: Diabetes Mellitus Type 1, Diabetes Mellitus Type 2, Internal Pacemaker, MRSA, Seizures *Have you ever received a pneumonia vaccine?: Yes *Have you received a flu vaccine this season?: Yes Other Medical History: Reports: Arthritis, Cataracts, Other. Denies: Blood Transfusion Reaction. Comment Only: Glaucoma (macular degeneration) Anesthesia experience/problems:: None Laterality Cases: Left: Mastectomy, Bilateral: Cataract, Tonsillectomy, Other Other Surgeries: Yes: No Previous Surgery, Cancer Surgery (breast), Cardiac Catheterization, Colonoscopy, Tubal Ligation, Other (lithotripsy). No: Pacemaker Amputation: No Fractures: No - *Social History Last grade of school completed: Some college Smoking Status: Current every day smoker Tobacco Type: cigarettes # Packs/Day (cigarettes): 1 Alcohol Intake: never Alcohol Intake Frequency:: a few times a month Substance Use Type: denies use *Occupational Status:: retired Housing: house Household Members: none *Travel in the last 8 weeks: Inside the [place] Family Hx:: No significant family history
[2021-03-14 13:06] LABS: Chloride 105 mmol/L (98-107)
[2021-03-14 13:07] LABS: Basophils # 0.1 K/mm3 (0-0.2); Basophils % 0.9 % (0.1-2.0); Eosinophils # 0.2 K/mm3 (0.0-0.4); Eosinophils % 2.5 % (0.1-12.0); Hematocrit 47.7 % (37.0-47.0); Hemoglobin 15.3 g/dL (12.2-16.2); Lymphocytes # 2.1 K/mm3 (0.7-4.5); Lymphocytes % 30.2 % (10-50); Mean Corpuscular HGB Conc 32.2 g/dL (31.8-35.4); Mean Corpuscular Hemoglobin 29.9 pg (27.0-31.2); Mean Corpuscular Volume 92.8 fl (81-99); Mean Platelet Volume 9.1 fl (7.4-10.4); Monocytes # 0.5 K/mm3 (0.1-1.0); Neutrophils # 4.2 K/mm3 (1.8-7.8); Neutrophils % 59.3 % (37.0-80.0); Platelet Count 52 K/mm3 (142-424); Potassium 4.1 mmoL/L (3.5-5.1); Red Blood Count 5.14 M/mm3 (4.20-5.40); Red Cell Distribution Width 13.3 % (11.5-17.5); Sodium 140 mmol/L (136-145)
[2021-03-14 13:10] LABS: Anion Gap 11.1 mEq/L (5-15); Blood Urea Nitrogen 17 mg/dl (7-17); Calcium 9.6 mg/dl (8.4-10.2); Carbon Dioxide 28 mmol/L (22.0-30.0); Creatinine Clearance Estimated 44 mL/min (50-200); Estimated Glomerular Filt Rate 119 ml/min (>60); GFR (African American) 144 ML/MIN (>60); Glucose 99 mg/dl (74-100)
--- NOTE | 2021-03-14 13:46 | XR_ITS ---
PROCEDURE: XR KUB CLINICAL INDICATION: STENT PLACED RIGHT KIDNEY COMPARISON: CT ABDPELWO CT abdomen pelvis wo con from 07/23/2018 FINDINGS: Fluoroscopy time: 1 minutes and 10 seconds. No available images for review. IMPRESSION: C-arm assisted stent placement Dictated by: Carmelo Cormier MD 03/14/2021 15:33 Carmelo Cormier MD in [place] 03/14/2021 15:33
--- NOTE | 2021-03-14 13:52 | P.PN_ITS ---
[facility] Anesthesia Record Part I Intake, IV Amount: 800 Estimated blood loss (mL): 0 Urine output (mL): 0 Blood Pressure: 151/82 SaO2: 92 Pulse Rate: 81 Respiratory Rate: 20 Temperature: 97.2 F Patient is:: Awake Stable to PACU at:: 13:51
--- NOTE | 2021-03-14 16:13 | HMH.OPNOTE ---
Date of procedure: 03/14/21 Pre-op Diagnosis:: Gross hematuria secondary to a 10 x 5 mm proximal right ureteral stone Post-op Diagnosis:: Same Procedure performed:: Cystoscopy with right stent placement Surgeon:: Geoff Brush MD CHEESE PACKER:: Other ([facility] [place]) Anesthesia: LMA Estimated blood loss (mL): 0 Clinical Note:: 80-year-old white female with 1 month history of some grossly bloody urine noted to have a 10 x 5 mm calcification on KUB. She presents today for cystoscopy and stent placement. Operative findings:: Bladder is within normal limits. Right ureteral stent was placed without difficulty. Operative note:: Patient taken to the operating room after informed consent was obtained. She was placed on the operating table in supine position and general anesthesia administered. Preoperative antibiotics and sequential compression devices placed. She was then placed into the dorsal lithotomy position and prepped draped in the standard surgical fashion. The 22 Orion passed into the urethra and into the bladder without difficulty. The bladder was examined in a systematic fashion. There was a a cystocele present. There is no evidence of mucosal abnormalities, bladder tumors, stones, diverticula or trabeculation. Ureteral orifices in their normal anatomic position. The ureteral orifices were volcano shaped. The right ureteral orifice was cannulated with a 5 Macedonian open-ended catheter and passed up to the level of the proximal ureteral stone. Under fluoroscopy attempted to manipulate the stone backwards into the renal pelvis but it would not budge. A guidewire then passed through the ureteral catheter by the stone. The ureteral catheter was removed and a 4.8 x 24 Macedonian stent was passed over the guidewire. The guidewire removed and a good curl was noted proximally and distally. The string was left on for later removal. The patient tolerated procedure well there are no complications. Urojet placed into the urethra for comfort after the procedure. Condition: stable Disposition: PACU Specimens:: None Complications:: None
--- NOTE | 2021-03-15 07:31 | HMH.ANESII ---
[facility] Anesthesia Record Part II Discharge Time: 14:21 Destination: Surgical Day Care (OP Surgery) PACU nurse assessment reviewed?: Yes Patient Condition:: Good Anesthesia Complications:: None Swallowing reflex intact?: Yes Cyanosis?: No Blood Pressure: 127/73 Pulse Rate: 65 Temperature: 97.2 F Mental Status: Alert & Oriented Pain level:: 0 Nausea and/or vomitting:: None Intake, IV Amount: 0
[2021-03-15 07:32] VITALS: BP 127/73; PULSE 65; TEMP 36.2
== END 2021-03-14 14:52 | disposition home or self-care (01) ==
LOC: OR 10:46
PROVIDERS: PCP Family Medicine; Visit Provider Urology
DX: N20.1 Calculus of ureter (principal); J44.9 Chronic obstructive pulmonary disease, unspecified; I25.10 Atherosclerotic heart disease of native coronary artery without angina pectoris; E78.5 Hyperlipidemia, unspecified; I10 Essential (primary) hypertension; G43.909 Migraine, unspecified, not intractable, without status migrainosus; N28.9 Disorder of kidney and ureter, unspecified; M19.90 Unspecified osteoarthritis, unspecified site; Z85.3 Personal history of malignant neoplasm of breast; Z86.79 Personal history of other diseases of the circulatory system; Z87.442 Personal history of urinary calculi; Z90.10 Acquired absence of unspecified breast and nipple
CPT/HCPCS: 52000; 74018; 80048; 85025; 96374; C2617

== ENCOUNTER → 2021-03-23 14:36 | Outpatient (CLI) | payer MEDICARE, SELFPAY ==
[2021-03-23 14:43] LABS: MANUAL DIFFERENTIAL MANUAL DIFFERENTIAL (MANUAL DIFF)
[2021-03-23 15:02] LABS: Basophils # 0.1 K/mm3 (0-0.2); Basophils % 0.8 % (0.1-2.0); Eosinophils # 0.2 K/mm3 (0.0-0.4); Hematocrit 46.7 % (37.0-47.0); Hemoglobin 15.4 g/dL (12.2-16.2); Lymphocytes # 2.7 K/mm3 (0.7-4.5); Lymphocytes % 37.4 % (10-50); Mean Corpuscular Volume 90.8 fl (81-99); Mean Platelet Volume 8.1 fl (7.4-10.4); Monocytes # 0.5 K/mm3 (0.1-1.0); Monocytes % 6.4 % (1.7-9.3); Neutrophils # 3.8 K/mm3 (1.8-7.8); Neutrophils % 52.4 % (37.0-80.0); Platelet Count 197 K/mm3 (142-424); Red Blood Count 5.15 M/mm3 (4.20-5.40); Red Cell Distribution Width 13.5 % (11.5-17.5); White Blood Count 7.3 K/mm3 (4.8-10.8)
[2021-03-23 16:06] LABS: Chloride 103 mmol/L (98-107); Sodium 143 mmol/L (136-145)
[2021-03-23 16:09] LABS: Blood Urea Nitrogen 14 mg/dl (7-17); Calcium 9.3 mg/dl (8.4-10.2); Carbon Dioxide 33 mmol/L (22.0-30.0); Estimated Glomerular Filt Rate 96 ml/min (>60); GFR (African American) 117 ML/MIN (>60); Glucose 122 mg/dl (74-100)
[2021-03-23 23:05] LABS: Acanthocytes 1+; Eosinophils % 3 % (0-3); Lymphocytes % 39 % (10-50); Monocytes % 4 % (2-9); Neutrophils % 54 % (42-76); Platelet Estimate Normal; Total Cells Counted 100
== END ==
PROVIDERS: Visit Provider Urology
DX: N20.1 Calculus of ureter (principal); Z01.812 Encounter for preprocedural laboratory examination; Z20.822 Contact with and (suspected) exposure to COVID-19
CPT/HCPCS: 36415; 80048; 85007; 85014; 85018; 85048; 85049; U0003

== ENCOUNTER 2021-03-25 09:32 | Day surgery (SDC) | payer MEDICARE, SELFPAY ==
[2021-03-23 13:14] VITALS: BMI 24.5
[2021-03-25] VITALS (11 sets, daily range): BP systolic 106–152; BP diastolic 64–87; PULSE 70–104; RESP 14–18; TEMP 36.1–36.7; O2SAT 91–96
--- NOTE | 2021-03-25 10:26 | HMH.ANESCL ---
[facility] Anesthesia Checklist - Patient Identification Patient Identification: Arm Band - Structural Data Admitted From: Home Planned Operative Procedure/s: Right ESWL Consent for Planned Operative Procedure(s) Verified: Yes Verified Documents: Surgical Consent, History and Physical - Additional verifications Anesthesia Reactions: No Hx Blood Transfusions: No Blood Transfusion Reaction: No - Airway Assessment C-Spine Mobility Assessed: Yes TMJ Mobility Assessed: Yes Dentition: Good Dentition - Neurological Assessment Level of Consciousness: Awake, Alert - Anesthesia Plan Anesthesia Risk discussed: Yes Anesthesia Plan: Verified ASA Class: III Anesthesia Type: General [facility] History Medical History: Reports:: Aneurysm, Cancer (breast), Chronic Obstructive Pulmonary Disease (COPD), Coronary Artery Disease, Hyperlipidemia, Hypertension, Kidney Stones, Migraine, Renal Disease Denies:: Diabetes Mellitus Type 1, Diabetes Mellitus Type 2, Internal Pacemaker, MRSA, Seizures *Have you ever received a pneumonia vaccine?: Yes *Have you received a flu vaccine this season?: Yes Other Medical History: Reports: Arthritis, Cataracts, Other. Denies: Blood Transfusion Reaction. Comment Only: Glaucoma (macular degeneration) Anesthesia experience/problems:: None Laterality Cases: Left: Mastectomy, Bilateral: Tonsillectomy, Other Other Surgeries: Yes: No Previous Surgery, Cancer Surgery (breast), Cardiac Catheterization, Colonoscopy, Tubal Ligation, Other (lithotripsy). No: Pacemaker Amputation: No Fractures: No - *Social History Smoking Status: Current every day smoker Tobacco Type: cigarettes # Packs/Day (cigarettes): 1 Alcohol Intake: never Alcohol Intake Frequency:: a few times a month Substance Use Type: denies use *Occupational Status:: retired Housing: house Household Members: none *Travel in the last 8 weeks: None Family Hx:: Coronary Artery Disease
[2021-03-25 11:44] LABS: Anion Gap 6.9 mEq/L (5-15); Blood Urea Nitrogen 16 mg/dl (7-17); Calcium 9.2 mg/dl (8.4-10.2); Carbon Dioxide 30 mmol/L (22.0-30.0); Chloride 106 mmol/L (98-107); Creatinine Clearance Estimated 42 mL/min (50-200); Estimated Glomerular Filt Rate 96 ml/min (>60); GFR (African American) 117 ML/MIN (>60); Glucose 102 mg/dl (74-100); Potassium 3.9 mmoL/L (3.5-5.1); Sodium 139 mmol/L (136-145)
--- NOTE | 2021-03-25 12:11 | P.PN_ITS ---
[facility] Anesthesia Checklist - Patient Identification Patient Identification: Arm Band - Structural Data Admitted From: Home Planned Operative Procedure/s: Right ESWL Consent for Planned Operative Procedure(s) Verified: Yes Verified Documents: Surgical Consent, History and Physical - NPO Status Verified Time NPO: 00:00 - Additional verifications Anesthesia Reactions: No Hx Blood Transfusions: No Blood Transfusion Reaction: No - Airway Assessment C-Spine Mobility Assessed: Yes TMJ Mobility Assessed: Yes Dentition: Good Dentition - Neurological Assessment Level of Consciousness: Awake, Alert - Anesthesia Plan Anesthesia Risk discussed: Yes ASA Class: III Anesthesia Type: General [facility] History Medical History: Reports:: Aneurysm, Cancer (breast), Chronic Obstructive Pulmonary Disease (COPD), Coronary Artery Disease, Hyperlipidemia, Hypertension, Kidney Stones, Migraine, Renal Disease Denies:: Diabetes Mellitus Type 1, Diabetes Mellitus Type 2, Internal Pacemaker, MRSA, Seizures *Have you ever received a pneumonia vaccine?: Yes *Have you received a flu vaccine this season?: Yes Other Medical History: Reports: Arthritis, Cataracts, Other. Denies: Blood Transfusion Reaction. Comment Only: Glaucoma (macular degeneration) Anesthesia experience/problems:: None Laterality Cases: Left: Mastectomy, Bilateral: Tonsillectomy, Other Other Surgeries: Yes: No Previous Surgery, Cancer Surgery (breast), Cardiac Catheterization, Colonoscopy, Tubal Ligation, Other (lithotripsy). No: Pacemaker Amputation: No Fractures: No - *Social History Smoking Status: Current every day smoker Tobacco Type: cigarettes # Packs/Day (cigarettes): 1 Alcohol Intake: never Alcohol Intake Frequency:: a few times a month Substance Use Type: denies use *Occupational Status:: retired Housing: house Household Members: none *Travel in the last 8 weeks: None Family Hx:: Coronary Artery Disease
--- NOTE | 2021-03-25 12:39 | P.PN_ITS ---
[facility] Anesthesia Record Part I Intake, IV Amount: 800 Estimated blood loss (mL): 0 Urine output (mL): 0 Blood Products used (#): none Blood Pressure: 150/78 SaO2: 94 Pulse Rate: 104 Respiratory Rate: 14 Temperature: 97.0 F Patient is:: Awake, Drowsy Stable to PACU at:: 12:34
--- NOTE | 2021-03-25 12:51 | HMH.OPNOTE ---
Date of procedure: 03/25/21 Pre-op Diagnosis:: Right proximal ureteral stone Post-op Diagnosis:: Right UPJ stone Procedure performed:: Right ESWL Surgeon:: Geoff Brush MD MANUFACTURING ENGINEERING PROFESSOR:: Other ([facility]) Anesthesia: LMA Estimated blood loss (mL): 0 Clinical Note:: Patient is a 80-year-old white female with a right proximal ureteral stone status post right stent placement. She presents for ESWL today. Operative findings:: The proximal ureteral stone now appears more at the right UPJ as it seems to have migrated a little more proximally. The stent is in good position. Lithotripsy was performed with good fragmentation of the calculus. Operative note:: Patient taken to the operating room after informed consent was obtained. She was placed on the operating table in the supine position and general anesthesia administered. Preoperative antibiotics and sequential compression devices placed. She was positioned and padded appropriately. The lithotripter was brought into position and fluoroscopic imaging showed the stone adjacent to the right ureteral stent near the right UPJ. After placing the stone into the crosshairs of the machine 3000 shockwaves were delivered to the stone starting at the level of the region advancing to 7 and back to 6. There was good fragmentation of the stone during and after the case. Patient tolerated the procedure well there are no complications. She was discharged to the recovery in stable condition. Condition: stable Disposition: PACU Specimens:: None Complications:: None
--- NOTE | 2021-03-25 13:15 | P.PN_ITS ---
[facility] Anesthesia Record Part II Discharge Time: 13:03 Destination: Surgical Day Care (OP Surgery) PACU nurse assessment reviewed?: Yes Patient Condition:: Good Anesthesia Complications:: None Swallowing reflex intact?: Yes Cyanosis?: No Blood Pressure: 136/72 Pulse Rate: 91 Temperature: 97.3 F Mental Status: Alert & Oriented Pain level:: 0 Nausea and/or vomitting:: None Intake, IV Amount: 800
== END 2021-03-25 13:45 | disposition home or self-care (01) ==
LOC: OR 09:33
PROVIDERS: Registered Nurse; PCP Family Medicine; Visit Provider Urology
DX: N20.1 Calculus of ureter (principal); J44.9 Chronic obstructive pulmonary disease, unspecified; I25.10 Atherosclerotic heart disease of native coronary artery without angina pectoris; E78.5 Hyperlipidemia, unspecified; I10 Essential (primary) hypertension; G43.909 Migraine, unspecified, not intractable, without status migrainosus; N28.9 Disorder of kidney and ureter, unspecified; M19.90 Unspecified osteoarthritis, unspecified site; Z85.3 Personal history of malignant neoplasm of breast; Z87.442 Personal history of urinary calculi; Z72.0 Tobacco use; Z79.899 Other long term (current) drug therapy
CPT/HCPCS: 50590; 80048; 96374; J2405

== ENCOUNTER → 2021-03-31 08:42 | Outpatient (CLI) | payer MEDICARE, SELFPAY ==
--- NOTE | 2021-03-31 08:45 | XR_ITS ---
PROCEDURE: XR KUB CLINICAL INDICATION: kidney stone COMPARISON: CT ABDPELWO CT abdomen pelvis wo con from 07/23/2018 CR XR KUB from 03/03/2021 CR XR KUB from 03/14/2021 FINDINGS: There is a right ureteral stent in place. There is bilateral nephrolithiasis. 7 mm stone overlies the lower pole of the right kidney and 7 mm stone overlies the lower pole of the left kidney. A small calcific density overlies the lower aspect of the right ureteral stent measuring 4 mm suggesting a ureteral calculus. Aortoiliac stents are present. Previously noted stone in the right renal pelvis is no longer present and may have been pushed back up into the right kidney and now overlies the lower pole of the right kidney. IMPRESSION: Bilateral nephrolithiasis. Interval insertion of right ureteral stent with suspected calculus overlying the distal aspect of the right ureteral stent. Dictated by: Carmelo Cormier MD 03/31/2021 09:50 Carmelo Cormier MD in [place] 03/31/2021 09:50
== END ==
PROVIDERS: PCP Family Medicine; Visit Provider Urology
DX: N20.0 Calculus of kidney (principal)
CPT/HCPCS: 74018

== ENCOUNTER → 2021-05-02 09:54 | Outpatient (POV) | payer MEDICARE, SELFPAY ==
--- NOTE | 2021-05-02 10:11 | HMH.PAINSOAP ---
[facility] Pain Management SOAP Note Subjective:: Patient is a 80-year-old white female who presents today for follow up and for medication refills. She is being treated in the clinic for left anterior chest wall pain status postmastectomy. She is managed in the clinic with [place] and Lyrica. She is on [place] 7.5 mg 1 tablet p.o. 3 times daily and Lyrica 150 mg 1 tablet p.o. twice daily. She denies any side effects. Razia #[id number] has been reviewed and is appropriate. Morphine equivalent is 0. Patient is unhappy that she will have to return to the clinic monthly for her medications. She says that she will discuss this with Dr. Ordonez in the future. Patient does rate her pain a 4 out of 10 today. Review of Systems General: No recent weight changes, no fever, no sleep disturbances Respiratory: No cough, no shortness of air, no recurring pulmonary infections Cardiovascular/peripheral vascular: Chronic left anterior chest pain after mastectomy, no palpitations, no edema, no shortness of breath Gastrointestinal: No new onset incontinence, normal bowel movements reported Genitourinary: No new onset incontinence Musculoskeletal: Chronic left anterior chest pain Psychiatric: Normal mood/affect Neurological: [Denies weakness in extremities], [denies balance issues] Objective:: Physical exam General: Alert and oriented x3, no acute distress, pleasant and cooperative, [on room air] Lungs: Respirations even and unlabored, symmetrical chest expansion Eyes: PERRL Musculoskeletal: , deep tendon reflexes normal, strength in upper and lower extremities [5/5], [normal gait noted Neurological: Speech clear, carry out clerk and shelf stocker equal, no gross sensory deficit Assessment:: Left anterior chest pain?status post mastectomy Plan:: We will refill the patient's [place] 7.5 mg 1 tablet p.o. 3 times daily and Lyrica 150 mg 1 tablet p.o. 2 times daily. We will give her a month medication and see her back in the clinic in 1 month. Risks and benefits of the medication have been explained in detail to the patient. The patient has been advised to consult with his/her primary care provider and pharmacist regarding drug-drug interaction of medications currently prescribed. Patient has been prescribed a controlled substance after being counseled on the medication, medication safety, and possible side effects. RAZIA report has been obtained and reviewed prior to prescription and found to be appropriate. Opioid contract was reviewed and signed by the patient, and that they have agreed to all of the terms set forth by our compliance program. Patient has been instructed to contact the clinic with any concerns before the next appointment. Dr. Craven has reviewed this note and agrees with this plan of care. This note was dictated using voice recognition software and make contain errors or omissions. [facility] History I have reviewed the patient's past medical history: Yes Medical History: Reports:: Aneurysm, Cancer, Chronic Obstructive Pulmonary Disease (COPD), Coronary Artery Disease, Diabetes Mellitus Type 1, Hyperlipidemia, Hypertension, Kidney Stones, Migraine, Renal Disease Denies:: Diabetes Mellitus Type 2, Internal Pacemaker, MRSA, Seizures *Have you ever received a pneumonia vaccine?: Yes *Have you received a flu vaccine this season?: Yes Other Medical History: Reports: Arthritis, Cataracts, Other. Denies: Blood Transfusion Reaction. Comment Only: Glaucoma (macular degeneration) Laterality Cases: Left: Mastectomy, Bilateral: Tonsillectomy, Other Other Surgeries: Yes: No Previous Surgery, Cancer Surgery (breast), Cardiac Catheterization, Colonoscopy, Tubal Ligation, Other (lithotripsy). No: Pacemaker Amputation: No Fractures: No - *Social History Smoking Status: Current every day smoker Tobacco Type: cigarettes # Packs/Day (cigarettes): 1 Alcohol Intake: current Alcohol Intake Frequency:: a few times a month Substance Use Type: denies use *Occupational Status:: retired [employer]ous
[2021-05-02 10:19] VITALS: BP 128/70; PULSE 90; RESP 18; O2SAT 97; BMI 24.7
== END ==
PROVIDERS: Visit Provider Clinical Nurse Specialist Family Health
DX: R07.89 Other chest pain (principal); Z90.10 Acquired absence of unspecified breast and nipple
CPT/HCPCS: 99212; G0463

== ENCOUNTER → 2021-05-30 09:56 | Outpatient (POV) | payer MEDICARE, SELFPAY ==
[2021-05-30 10:01] VITALS: BP 127/59; PULSE 95; RESP 18; O2SAT 98; BMI 24.3
--- NOTE | 2021-05-30 10:06 | P.CONS_ITS ---
[facility] Pain Management SOAP Note Subjective:: Patient is a pleasant 80-year-old white female that presents today for follow-up and medication refills. she is currently being treated for left anterior chest pain status post mastectomy. Patient is rating her pain today a 2 out of 10. She is currently managed with [place] 7.5 1 tablet p.o. 3 times a day and Lyrica 150 mg 1 tablet p.o. twice daily. She denies any side effects to this medication. She denies any changes to the location or type of pain today. She is needing refills on her medications. Her Lauri number is [id number] she has an active morphine equivalent of 23. Her previous drug screens have been reviewed and appropriate. Review of Systems General: No recent weight changes, no fever, no sleep disturbances Respiratory: No cough, no shortness of air, no recurring pulmonary infections Cardiovascular/peripheral vascular: No chest pain, no palpitations, no edema, no shortness of breath Gastrointestinal: No new onset incontinence, normal bowel movements reported Genitourinary: No new onset incontinence Musculoskeletal: [Left sided chest pain ] Psychiatric: [Normal mood/affect] Neurological: [Denies weakness in extremities], [denies balance issues] Objective:: Physical exam General: Alert and oriented x3 no acute distress, pleasant and cooperative, [on room air] Lungs: Respirations even and unlabored, symmetrical chest expansion Eyes: PERRL Musculoskeletal: Flexion and extension of the thoracic spine nonguarded, deep tendon reflexes normal, strength in upper and lower extremities 5 out of 5 normal gait noted Neurological: Speech clear, cadmium liquor maker equal, no gross sensory deficit Assessment:: Left anterior chest pain post mastectomy Plan:: We will continue the patient [place] 7.5 3 times a day as well as Lyrica 150 mg 1 tablet p.o. twice daily. We will give the patient 1 month. She will need to follow-up in 1 month for medication refills. She is requesting that her next appointment be scheduled with Dr. Craven as she is not happy with the monthly appointments at this time. Dr. Craven has reviewed this note and agrees with this plan of care. This note was dictated using voice recognition software and make contain errors or omissions. [facility] History Medical History: Reports:: Aneurysm, Cancer, Chronic Obstructive Pulmonary Disease (COPD), Coronary Artery Disease, Diabetes Mellitus Type 1, Hyperlipidemia, Hypertension, Kidney Stones, Migraine, Renal Disease Denies:: Diabetes Mellitus Type 2, Internal Pacemaker, MRSA, Seizures *Have you ever received a pneumonia vaccine?: Yes *Have you received a flu vaccine this season?: Yes Other Medical History: Reports: Arthritis, Cataracts, Other. Denies: Blood Transfusion Reaction. Comment Only: Glaucoma (macular degeneration) Laterality Cases: Left: Mastectomy, Bilateral: Tonsillectomy, Other Other Surgeries: Yes: No Previous Surgery, Cancer Surgery (breast), Cardiac Catheterization, Colonoscopy, Tubal Ligation, Other (lithotripsy). No: Pacemaker Amputation: No Fractures: No - *Social History Smoking Status: Current every day smoker Tobacco Type: cigarettes # Packs/Day (cigarettes): 1 Alcohol Intake: current Alcohol Intake Frequency:: a few times a month Substance Use Type: denies use *Occupational Status:: unemployed Housing: house Household Members: none *Travel in the last 8 weeks: None Family Hx:: Coronary Artery Disease
== END ==
PROVIDERS: Visit Provider Family Medicine
DX: R07.89 Other chest pain (principal); Z90.10 Acquired absence of unspecified breast and nipple
CPT/HCPCS: 99212; G0463

== ENCOUNTER → 2021-07-01 11:55 | Outpatient (POV) | payer MEDICARE, SELFPAY ==
[2021-07-01 12:24] VITALS: BP 141/75; PULSE 87; RESP 20; TEMP 36.6; O2SAT 97
--- NOTE | 2021-07-01 12:33 | HMH.PAINSOAP ---
[facility] Pain Management SOAP Note Subjective:: Patient is a pleasant 80-year-old white female who we are treating for left anterior chest pain status post mastectomy. Currently she is medically managed with [place] 7.5 mg 1 tablet 3 times a day Lyrica 150 mg twice a day. She has no side effects with this medication. She is doing very well. We are seeing her every month. She is wanting to extend this however I did tell her that because of our regulations with narcotic prescribing we will continue to see her every month. Objective:: Alert and oriented x3 no acute distress. Patient does have an antalgic gait. Motor strength of the lower extremities is 5/5. No side effects with medications. Assessment:: Left anterior chest pain status post mastectomy Plan:: We will continue to see her every month. She does not need a refill today. We will continue with her prescription next month of [place] 7.5 mg 1 tablet 3 times a day and Lyrica 150 mg twice a day. [facility] History Medical History: Reports:: Aneurysm, Cancer, Chronic Obstructive Pulmonary Disease (COPD), Coronary Artery Disease, Diabetes Mellitus Type 1, Hyperlipidemia, Hypertension, Kidney Stones, Migraine, Renal Disease Denies:: Diabetes Mellitus Type 2, Internal Pacemaker, MRSA, Seizures *Have you ever received a pneumonia vaccine?: Yes *Have you received a flu vaccine this season?: Yes Other Medical History: Reports: Arthritis, Cataracts, Other. Denies: Blood Transfusion Reaction. Comment Only: Glaucoma (macular degeneration) Laterality Cases: Left: Mastectomy, Bilateral: Tonsillectomy, Other Other Surgeries: Yes: No Previous Surgery, Cancer Surgery (breast), Cardiac Catheterization, Colonoscopy, Tubal Ligation, Other (lithotripsy). No: Pacemaker Amputation: No Fractures: No - *Social History Smoking Status: Current every day smoker Tobacco Type: cigarettes # Packs/Day (cigarettes): 1 Alcohol Intake: current Alcohol Intake Frequency:: a few times a month Substance Use Type: denies use *Occupational Status:: retired Housing: house Household Members: none *Travel in the last 8 weeks: None Family Hx:: Coronary Artery Disease
== END ==
PROVIDERS: PCP Family Medicine; Visit Provider Anesthesiology
DX: R07.89 Other chest pain (principal); Z90.10 Acquired absence of unspecified breast and nipple
CPT/HCPCS: 99212; G0463

== ENCOUNTER → 2021-07-08 10:59 | Outpatient (CLI) | payer MEDICARE, SELFPAY | LOC: SL 11:00 → RT 11:05 | PROVIDERS: PCP Family Medicine; Visit Provider Family Medicine | DX: G47.33 Obstructive sleep apnea (adult) (pediatric) (principal) | CPT/HCPCS: 94762 ==

== ENCOUNTER → 2021-08-15 10:37 | Outpatient (POV) | payer MEDICARE, SELFPAY ==
[2021-08-15 10:54] VITALS: BP 145/78; PULSE 80; RESP 18; O2SAT 96; BMI 24.3
--- NOTE | 2021-08-15 11:30 | HMH.PAINSOAP ---
[facility] Pain Management SOAP Note Subjective:: Patient is a 81-year-old white female who presents today for medication refills. She is treated for left anterior chest pain which is chronic in nature from a mastectomy in the past. She is managed with [place] 7.5 mg 1 tablet p.o. 3 times daily and denies any side effects. She is also managed with Lyrica 150 mg 1 tablet p.o. twice daily. Patient is voicing concerns of coming into the clinic due to Covid. She says her son who is the divider operator currently has Covid. She is asking to do a telehealth visit next month. Razia [id number] has been reviewed and is appropriate. Morphine equivalent is 0. Drug screens are appropriate. Patient has also asked today to postpone her drug screen. Patient has been informed she will need to do the drug screen today or she will not be able to do telephone visit next month due to drug screen compliance. Patient has decided she will do the drug screen today. She does rate her pain a 4 out of 10. Review of Systems General: No recent weight changes, no fever, no sleep disturbances Respiratory: No cough, no shortness of air, no recurring pulmonary infections Cardiovascular/peripheral vascular: Chronic left anterior chest pain no palpitations, no edema, no shortness of breath Gastrointestinal: No new onset incontinence, normal bowel movements reported Genitourinary: No new onset incontinence Musculoskeletal: Chronic left anterior chest pain Psychiatric: [Normal mood/affect] Neurological: [Denies weakness in extremities], [denies balance issues] Objective:: Physical exam General: Alert and oriented x3, no acute distress, pleasant and cooperative Lungs: Respirations even and unlabored, symmetrical chest expansion Eyes: PERRL Musculoskeletal: Palpation of left anterior chest area somewhat guarded secondary to pain, normal gait noted Assessment:: Left anterior chest pain?chronic Plan:: We will refill the patient's [place] 7.5 mg 1 tablet p.o. 3 times daily and Lyrica 150 mg 1 tablet p.o. twice daily. We will give the patient a month medication and see her back through telehealth visit in 1 month. Risks and benefits of the medication have been explained in detail to the patient. The patient does understand the risk of dependence on the medication when given over a prolonged period. Patient has been advised of risks of oversedation with the prescribed medication. Narcan has been offered to the paitent in the event of oversedation. Patient has been advised that a family member should also be educated regarding administration of Narcan. The patient has been advised to consult with his/her primary care provider and pharmacist regarding drug-drug interaction of medications currently prescribed. Patient has been prescribed a controlled substance after being counseled on the medication, medication safety, and possible side effects. RAZIA report has been obtained and reviewed prior to prescription and found to be appropriate. Opioid contract was reviewed and signed by the patient, and that they have agreed to all of the terms set forth by our compliance program. Patient has been instructed to contact the clinic with any concerns before the next appointment. Dr. Craven has reviewed this note and agrees with this plan of care. This note was dictated using voice recognition software and make contain errors or omissions. [facility] History I have reviewed the patient's past medical history: Yes Medical History: Reports:: Aneurysm, Cancer, Chronic Obstructive Pulmonary Disease (COPD), Coronary Artery Disease, Diabetes Mellitus Type 1, Hyperlipidemia, Hypertension, Kidney Stones, Migraine, Renal Disease Denies:: Diabetes Mellitus Type 2, Internal Pacemaker, MRSA, Seizures *Have you ever received a pneumonia vaccine?: Yes *Have you received a flu vaccine this season?: Yes Other Medical History: Reports: Arthritis, Cataracts, Other. Denies: Blood Transfusion Reaction. Comment
[2021-08-15 13:14] LABS: Amphetamine/Metha Screen,Urine Negative ng/ml (<1000)
[2021-08-15 13:15] LABS: Barbiturates Screen,Urine Negative ng/ml (<200); Benzodiazepines Screen,Urine Negative ng/ml (<200)
[2021-08-15 13:16] LABS: Cannabinoid Screen,Urine Negative ng/ml (<50)
[2021-08-15 13:17] LABS: Cocaine Screen,Urine Negative ng/ml (<300); Methadone Screen,Urine Negative ng/ml (<300)
[2021-08-15 13:18] LABS: Opiate Screen,Urine Positive ng/ml (<300)
[2021-08-15 13:20] LABS: Phencyclidine Screen,Urine Negative ng/ml (<25)
== END ==
PROVIDERS: Visit Provider Clinical Nurse Specialist Family Health
DX: R07.89 Other chest pain (principal); Z79.891 Long term (current) use of opiate analgesic
CPT/HCPCS: 80305; 99212; G0463

== ENCOUNTER → 2021-09-30 12:48 | Outpatient (POV) | payer MEDICARE, SELFPAY ==
[2021-09-30 12:58] VITALS: BP 144/62; PULSE 84; RESP 18; TEMP 36.4; O2SAT 95; BMI 24.6
--- NOTE | 2021-09-30 13:00 | P.CONS_ITS ---
[facility] Pain Management SOAP Note Subjective:: This patient is a pleasant 81-year-old white female who we have been treating for anterior chest pain from a previous mastectomy in the past with [place] 7.5 mg 3 times a day. She is also managed with Lyrica 150 mg twice a day. She has some issues down her right leg in the anterior thigh region. She is not tender over her SI joint. This is most likely coming from her back. She does have some degenerative disc disease with arthritis in her back. I do believe that she would benefit from a lumbar epidural steroid injection. She is not on any anticoagulation. Worst pain is when she is walking and standing. Will plan on lumbar epidural steroid injection under fluoroscopy at her next visit. Objective:: Alert and oriented x3 no acute distress. Patient does have an antalgic gait. Motor strength of the lower extremities is 5/5. There is no gross sensory deficit. Assessment:: Degenerative disc disease of lumbar spine with lumbar radiculopathy symptoms and pain in the right anterior thigh. Plan:: We will plan on lumbar epidural steroid injection under fluoroscopy at L4-L5 to help with her right anterior thigh pain. [facility] History Medical History: Reports:: Aneurysm, Cancer, Chronic Obstructive Pulmonary Disease (COPD), Coronary Artery Disease, Diabetes Mellitus Type 1, Hyperlipidemia, Hypertension, Kidney Stones, Migraine, Renal Disease Denies:: Diabetes Mellitus Type 2, Internal Pacemaker, MRSA, Seizures *Have you ever received a pneumonia vaccine?: Yes *Have you received a flu vaccine this season?: Yes Other Medical History: Reports: Arthritis, Cataracts, Other. Denies: Blood Transfusion Reaction. Comment Only: Glaucoma (macular degeneration) Laterality Cases: Left: Mastectomy, Bilateral: Tonsillectomy, Other Other Surgeries: Yes: No Previous Surgery, Cancer Surgery (breast), Cardiac Catheterization, Colonoscopy, Tubal Ligation, Other (lithotripsy). No: Pacemaker Amputation: No Fractures: No - *Social History Smoking Status: Current every day smoker Tobacco Type: cigarettes # Packs/Day (cigarettes): 1 Alcohol Intake: current Alcohol Intake Frequency:: a few times a month Substance Use Type: denies use *Occupational Status:: unemployed Housing: house Household Members: none *Travel in the last 8 weeks: Inside the [place] Family Hx:: Coronary Artery Disease
== END ==
PROVIDERS: PCP Family Medicine; Visit Provider Anesthesiology
DX: M51.16 Intervertebral disc disorders with radiculopathy, lumbar region (principal); M79.651 Pain in right thigh
CPT/HCPCS: 99212; G0463

== ENCOUNTER 2021-10-14 13:53 | Day surgery (SDC) | payer MEDICARE, SELFPAY ==
[2021-10-14 14:11] VITALS: BP 129/72; PULSE 77; RESP 18; TEMP 36.5; O2SAT 94; BMI 23.8
--- NOTE | 2021-10-14 14:29 | HMH.PMPROC ---
- Procedure Date: 10/14/21 Time: 14:29 Anesthesiologist:: Chandrika Donovan MD Complications:: None Pre-procedure Diagnosis:: Degenerative disc disease of the lumbar spine lumbar radiculopathy Post-procedure Diagnosis:: Same Indications for Procedure:: Patient is a very pleasant 81-year-old white female who presents today with chronic low back pain rating into her legs related to the above diagnosis. She is trialed and failed conservative treatment getting oral pain medications and home stretching program for greater than 6 weeks. We have also been previously managing her anterior chest wall pain from a previous mastectomy in the past with [place] 7.5 mg 1 tablet p.o. 3 times daily. She is also taking Lyrica 150 mg twice daily. Plan for today is for the patient to undergo a lumbar epidural steroid injection at L5-S1 #1 under fluoroscopy. Procedure Details:: Informed consent was obtained and the risk and benefits of the procedure was explained to the patient. The patient was taken to the procedure room. The patient was placed prone on the procedure table. The patient was prepped and draped in sterile fashion. C-arm fluoroscopy was used to view the lumbar spine. Skin and subcutaneous tissues were anesthetized using lidocaine. I placed an 18-gauge epidural needle and advanced into the L5-S1 interspace using fluoroscopic guidance and [id number] to air and saline. After confirmation of needle placement in the epidural space with dye I injected 1 mL of lidocaine 1.0% with Depo-Medrol 80 mg. Patient tolerated the procedure well with no complications. Plan and Disposition:: We will follow-up with this patient in 2 weeks. Will reevaluate pain symptoms at the time.
[2021-10-14 14:47] VITALS: BP 120/76; PULSE 69; RESP 18; O2SAT 93
[2021-10-14 14:49] VITALS: PULSE 75; RESP 18; O2SAT 96
[2021-10-14 15:02] VITALS: BP 140/74; PULSE 77; RESP 20; O2SAT 94
== END 2021-10-14 15:03 | disposition home or self-care (01) ==
LOC: SC.PAINP 13:54
PROVIDERS: PCP Family Medicine; Visit Provider Anesthesiology Pain Medicine
DX: M51.16 Intervertebral disc disorders with radiculopathy, lumbar region (principal); G43.909 Migraine, unspecified, not intractable, without status migrainosus; E78.5 Hyperlipidemia, unspecified; I10 Essential (primary) hypertension; J44.9 Chronic obstructive pulmonary disease, unspecified; E11.9 Type 2 diabetes mellitus without complications; I25.10 Atherosclerotic heart disease of native coronary artery without angina pectoris; Z72.0 Tobacco use; H26.9 Unspecified cataract; H40.9 Unspecified glaucoma; Z87.442 Personal history of urinary calculi; Z79.899 Other long term (current) drug therapy
CPT/HCPCS: 62323; J1040; Q9966

== ENCOUNTER → 2021-11-01 10:19 | Outpatient (POV) | payer MEDICARE, SELFPAY ==
[2021-11-01 11:16] VITALS: BP 140/71; PULSE 87; RESP 18; O2SAT 95; BMI 23.8
--- NOTE | 2021-11-01 12:05 | HMH.PAINSOAP ---
[facility] Pain Management SOAP Note Subjective:: Patient is an 81-year-old white female who presents today for follow-up after lumbar epidural steroid injection. Patient says that her pain is a 1 out of 10 at this time. She got between 70 to 80% relief. She is also managed in our clinic with oral medications of pregabalin 150 mg 1 tablet p.o. twice daily as well as [place] 7.5 mg 1 tablet p.o. 3 times daily. She is doing well with her oral medication regimen and with routine injective therapy. She is planning to travel to [place] in December and did want to undergo the injections so that she could have pain relief while on her trip. Today she is doing well overall. She does need a refill on her oral medications. She denies any side effects the medications. Drug screens have been appropriate. Morphine equivalent is [id number]. Review of Systems General: No recent weight changes, no fever, no sleep disturbances Respiratory: No cough, no shortness of air, no recurring pulmonary infections Cardiovascular/peripheral vascular: No chest pain, no palpitations, no edema, no shortness of breath Gastrointestinal: No new onset incontinence, normal bowel movements reported Genitourinary: No new onset incontinence Musculoskeletal: Intermittent low back pain Psychiatric: [Normal mood/affect] Neurological: [Denies weakness in extremities], [denies balance issues] Objective:: Physical exam General: Alert and oriented x3, no acute distress, pleasant and cooperative Lungs: Respirations even and unlabored, symmetrical chest expansion Eyes: PERRL Musculoskeletal: Flexion and extension of lumbar [spine] somewhat guarded secondary to pain, [antalgic gait noted] Neurological: Speech clear, no gross sensory deficit Assessment:: deGenerative disc disease lumbar spine with lumbar radiculopathy symptoms Plan:: We will continue the patient's pregabalin 150 mg 1 tablet p.o. twice daily and [place] 7.5 mg 1 tablet p.o. 3 times daily. We will give the patient a month medication. We will give her a 5-day dose of prednisone 20 mg 1 tablet p.o. twice daily for 5 days to have in the event that the pain worsens. Risks and benefits of the medication have been explained in detail to the patient. The patient does understand the risk of dependence on the medication when given over a prolonged period. Patient has been advised of risks of oversedation with the prescribed medication. Narcan has been offered to the paitent in the event of oversedation. Patient has been advised that a family member should also be educated regarding administration of Narcan. The patient has been advised to consult with his/her primary care provider and pharmacist regarding drug-drug interaction of medications currently prescribed. Patient has been prescribed a controlled substance after being counseled on the medication, medication safety, and possible side effects. RAZIA report has been obtained and reviewed prior to prescription and found to be appropriate. Opioid contract was reviewed and signed by the patient, and that they have agreed to all of the terms set forth by our compliance program. Patient has been instructed to contact the clinic with any concerns before the next appointment. Dr. Craven has reviewed this note and agrees with this plan of care. This note was dictated using voice recognition software and make contain errors or omissions. [facility] History I have reviewed the patient's past medical history: Yes Medical History: Reports:: Aneurysm, Cancer, Chronic Obstructive Pulmonary Disease (COPD), Coronary Artery Disease, Diabetes Mellitus Type 1, Hyperlipidemia, Hypertension, Kidney Stones, Migraine, Renal Disease Denies:: Diabetes Mellitus Type 2, Internal Pacemaker, MRSA, Seizures *Have you ever received a pneumonia vaccine?: Yes *Have you received a flu vaccine this season?: Yes Other Medical History: Reports: Arthritis, Cataracts, Other. Denies: Blood Transfusio
== END ==
PROVIDERS: Visit Provider Clinical Nurse Specialist Family Health
DX: M51.16 Intervertebral disc disorders with radiculopathy, lumbar region (principal)
CPT/HCPCS: 99212; G0463

== ENCOUNTER → 2021-12-01 07:34 | Outpatient (POV) | payer MEDICARE, SELFPAY ==
--- NOTE | 2021-12-01 08:22 | HMH.VVPMSO ---
[facility] PM Virtual Visit SOAP Consent for virtual visit:: With the recent concerns about the COVID-19, we are trying to minimize exposure to you by shifting to telehealth appointments whenever possible. It restricts me from seeing you in person, but the trade off is protecting you during this pandemic. Can you see and hear me okay, and do you consent to this option? If not, I would be happy to see if we can reschedule your appointment in the future, when feasible. Has patient consented to this virtual visit?: Yes Subjective:: Is an 81-year-old white female who is following up via telehealth medicine for medication refills. Patient says she is leaving today to go to [place]. We are doing a telehealth visit by phone today due to weather conditions in our area. The patient says that she is doing well with her oral medications at this time. She plans to contact the pharmacy in [place] to have the medications transferred to that area. She may need to call the clinic for transfer of medication. She is doing well with the medicines. She is on [place] 7.5 mg 1 tablet p.o. 3 times daily and Lyrica 150 mg 1 tablet p.o. twice daily. She denies any side effects. Razia and drug screen have been appropriate. Pain is at baseline at 5 out of 10. Patient is planning a trip to [place] in December. She would like to undergo injective therapy prior to her trip. Review of Systems General: No recent weight changes, no fever, no sleep disturbances Respiratory: No cough, no shortness of air, no recurring pulmonary infections Cardiovascular/peripheral vascular: No chest pain, no palpitations, no edema, no shortness of breath Gastrointestinal: No new onset incontinence, normal bowel movements reported Genitourinary: No new onset incontinence Musculoskeletal: Chronic low back pain with pain in bilateral lower extremities Psychiatric: [Normal mood/affect] Neurological: [Denies weakness in extremities], [denies balance issues] Objective:: Physical exam General: Alert and oriented x3, no acute distress, pleasant and cooperative Assessment:: Degenerative disc disease lumbar spine with lumbar radiculopathy symptoms Plan:: Patient is doing well overall. We will continue the [place] 7.5 mg 1 tablet p.o. 3 times daily and Lyrica 150 mg 1 tablet p.o. twice daily. The patient would like to undergo injective therapy prior to her trip to [place] which is scheduled in December. At next visit, we will discuss injection at that time. Risks and benefits of the medication have been explained in detail to the patient. The patient does understand the risk of dependence on the medication when given over a prolonged period. Patient has been advised of risks of oversedation with the prescribed medication. Narcan has been offered to the paitent in the event of oversedation. Patient has been advised that a family member should also be educated regarding administration of Narcan. The patient has been advised to consult with his/her primary care provider and pharmacist regarding drug-drug interaction of medications currently prescribed. Patient has been prescribed a controlled substance after being counseled on the medication, medication safety, and possible side effects. RAZIA report has been obtained and reviewed prior to prescription and found to be appropriate. Opioid contract was reviewed and signed by the patient, and that they have agreed to all of the terms set forth by our compliance program. Patient has been instructed to contact the clinic with any concerns before the next appointment. Dr. Craven has reviewed this note and agrees with this plan of care. This note was dictated using voice recognition software and make contain errors or omissions. Time In:: 08:20 Time Out:: 08:25 [facility] History I have reviewed the patient's past medical history: Yes Medical History: Reports:: Aneurysm, Cancer, Chronic Obstructive Pulmonary Disease (COPD), Coronary Artery Diseas
== END ==
PROVIDERS: Visit Provider Clinical Nurse Specialist Family Health
DX: M51.16 Intervertebral disc disorders with radiculopathy, lumbar region (principal)
CPT/HCPCS: 99212; G0463

== ENCOUNTER 2022-01-27 11:36 | Outpatient (CLI) | payer MEDICARE, SELFPAY ==
[2022-01-27 11:47] VITALS: BMI 22.3
[2022-01-27 12:05] VITALS: BP 123/74; PULSE 68; RESP 20; TEMP 36.9; O2SAT 95
[2022-01-27 12:08] LABS: Basophils # 0.1 K/mm3 (0-0.2); Basophils % 1.3 % (0.1-2.0); Eosinophils # 0.1 K/mm3 (0.0-0.4); Hematocrit 51.2 % (37.0-47.0); Hemoglobin 16.8 g/dL (12.2-16.2); Lymphocytes # 1.5 K/mm3 (0.7-4.5); Lymphocytes % 24.2 % (10-50); Mean Corpuscular HGB Conc 32.9 g/dL (31.8-35.4); Mean Corpuscular Volume 94.2 fl (81-99); Mean Platelet Volume 8.4 fl (7.4-10.4); Monocytes # 0.5 K/mm3 (0.1-1.0); Monocytes % 7.8 % (1.7-9.3); Neutrophils % 64.8 % (37.0-80.0); Platelet Count 218 K/mm3 (142-424); Red Blood Count 5.44 M/mm3 (4.20-5.40); Red Cell Distribution Width 13.5 % (11.5-17.5); White Blood Count 6.1 K/mm3 (4.8-10.8)
[2022-01-27 12:17] LABS: Chloride 103 mmol/L (98-107); Potassium 4.2 mmoL/L (3.5-5.1); Sodium 138 mmol/L (136-145)
[2022-01-27 12:19] LABS: Blood Urea Nitrogen 15 mg/dl (7-17); Creatinine Clearance Estimated 38 mL/min (50-200); Estimated Glomerular Filt Rate 96 ml/min (>60); GFR (African American) 116 ML/MIN (>60)
[2022-01-27 12:20] LABS: Alanine Aminotransferase 29 U/L (12-78); Albumin Level 4.1 g/dl (3.5-5.0); Albumin/Globulin Ratio 1.2 (1.1-1.8); Alkaline Phosphatase 53 U/L (38-126); Anion Gap 10.2 mEq/L (5-15); Aspartate Amino Transferase 38 U/L (14-36); Bilirubin,Total 1.1 mg/dl (0.2-1.3); Carbon Dioxide 29 mmol/L (22.0-30.0); Globulin 3.3 g/dL (1.3-3.2); Glucose 117 mg/dl (74-100); Total Protein,Serum 7.4 g/dl (6.3-8.2)
[2022-01-27 13:05] VITALS: BP 128/74; PULSE 68; RESP 20; TEMP 36.9; O2SAT 95
== END 2022-01-27 13:05 | disposition home or self-care (01) ==
LOC: INF 11:37
PROVIDERS: PCP Family Medicine; Visit Provider Family Medicine
DX: R19.7 Diarrhea, unspecified (principal); R53.1 Weakness
CPT/HCPCS: 80053; 85025; 96360

== ENCOUNTER → 2022-02-04 06:28 | Outpatient (CLI) | payer MEDICARE, SELFPAY ==
[2022-02-04 07:44] LABS: Adenovirus F 40/41, stool Not Detected (NotDetected); Astrovirus Not Detected (NotDetected); Campylobacter Not Detected (NotDetected); Clostridium Difficile A/B, PCR Not Detected (NotDetected); Cryptosporidium Not Detected (NotDetected); Cyclospora Cayetanesis Not Detected (NotDetected); Entamoeba histolytica Not Detected (NotDetected); Enteroaggregative E coli Not Detected (NotDetected); Enterotoxigenic E coli Not Detected (NotDetected); Giardia lamblia Not Detected (NotDetected); Norovirus Not Detected (NotDetected); Plesimonas Shigalloides, PCR Not Detected (NotDetected); Rotavirus A Not Detected (NotDetected); Salmonella, PCR Not Detected (NotDetected); Sapovirus Not Detected (NotDetected); Shiga-like toxin E coli Not Detected (NotDetected); Shigella Enterovasive E coli Not Detected (NotDetected); Vibrio Cholerae Not Detected (NotDetected); Vibrio, PCR Not Detected (NotDetected); Yersinia Entercolitica, PCR Not Detected (NotDetected)
[2022-02-04 16:37] LABS: Enteropathogenic E coli Detected (NotDetected)
== END ==
PROVIDERS: Visit Provider Family Medicine
DX: R19.7 Diarrhea, unspecified (principal)
CPT/HCPCS: 87506

== ENCOUNTER → 2022-02-19 09:27 | Outpatient (CLI) | payer MEDICARE, SELFPAY ==
[2022-02-19 09:53] LABS: Adenovirus F 40/41, stool Not Detected (NotDetected); Astrovirus Not Detected (NotDetected); Campylobacter Not Detected (NotDetected); Cryptosporidium Not Detected (NotDetected); Cyclospora Cayetanesis Not Detected (NotDetected); Entamoeba histolytica Not Detected (NotDetected); Enteroaggregative E coli Not Detected (NotDetected); Enterotoxigenic E coli Not Detected (NotDetected); Giardia lamblia Not Detected (NotDetected); Norovirus Not Detected (NotDetected); Plesimonas Shigalloides, PCR Not Detected (NotDetected); Rotavirus A Not Detected (NotDetected); Salmonella, PCR Not Detected (NotDetected); Sapovirus Not Detected (NotDetected); Shiga-like toxin E coli Not Detected (NotDetected); Shigella Enterovasive E coli Not Detected (NotDetected); Vibrio Cholerae Not Detected (NotDetected); Vibrio, PCR Not Detected (NotDetected); Yersinia Entercolitica, PCR Not Detected (NotDetected)
[2022-02-19 18:54] LABS: Enteropathogenic E coli Detected (NotDetected)
[2022-02-19 18:55] LABS: Clostridium Difficile A/B, PCR Detected (NotDetected)
== END ==
PROVIDERS: PCP Family Medicine; Visit Provider Family Medicine
DX: R19.7 Diarrhea, unspecified (principal); A04.72 Enterocolitis due to Clostridium difficile, not specified as recurrent; A04.4 Other intestinal Escherichia coli infections
CPT/HCPCS: 87507

== ENCOUNTER → 2022-03-06 10:41 | Outpatient (CLI) | payer MEDICARE, SELFPAY ==
[2022-03-06 10:47] LABS: Adenovirus F 40/41, stool Not Detected (NotDetected); Astrovirus Not Detected (NotDetected); Campylobacter Not Detected (NotDetected); Clostridium Difficile A/B, PCR Not Detected (NotDetected); Cryptosporidium Not Detected (NotDetected); Cyclospora Cayetanesis Not Detected (NotDetected); Entamoeba histolytica Not Detected (NotDetected); Enteroaggregative E coli Not Detected (NotDetected); Enteropathogenic E coli Not Detected (NotDetected); Enterotoxigenic E coli Not Detected (NotDetected); Giardia lamblia Not Detected (NotDetected); Norovirus Not Detected (NotDetected); Plesimonas Shigalloides, PCR Not Detected (NotDetected); Rotavirus A Not Detected (NotDetected); Salmonella, PCR Not Detected (NotDetected); Sapovirus Not Detected (NotDetected); Shiga-like toxin E coli Not Detected (NotDetected); Shigella Enterovasive E coli Not Detected (NotDetected); Vibrio Cholerae Not Detected (NotDetected); Vibrio, PCR Not Detected (NotDetected); Yersinia Entercolitica, PCR Not Detected (NotDetected)
== END ==
PROVIDERS: Visit Provider Family Medicine
DX: A04.72 Enterocolitis due to Clostridium difficile, not specified as recurrent (principal); A04.4 Other intestinal Escherichia coli infections
CPT/HCPCS: 87506

== ENCOUNTER → 2022-03-21 11:21 | Outpatient (CLI) | payer MEDICARE, SELFPAY ==
[2022-03-21 11:35] LABS: Adenovirus F 40/41, stool Not Detected (NotDetected); Astrovirus Not Detected (NotDetected); Campylobacter Not Detected (NotDetected); Cryptosporidium Not Detected (NotDetected); Cyclospora Cayetanesis Not Detected (NotDetected); Entamoeba histolytica Not Detected (NotDetected); Enteroaggregative E coli Not Detected (NotDetected); Enteropathogenic E coli Not Detected (NotDetected); Enterotoxigenic E coli Not Detected (NotDetected); Giardia lamblia Not Detected (NotDetected); Norovirus Not Detected (NotDetected); Plesimonas Shigalloides, PCR Not Detected (NotDetected); Rotavirus A Not Detected (NotDetected); Salmonella, PCR Not Detected (NotDetected); Sapovirus Not Detected (NotDetected); Shiga-like toxin E coli Not Detected (NotDetected); Shigella Enterovasive E coli Not Detected (NotDetected); Vibrio Cholerae Not Detected (NotDetected); Vibrio, PCR Not Detected (NotDetected); Yersinia Entercolitica, PCR Not Detected (NotDetected)
[2022-03-25 08:38] LABS: Clostridium Difficile A/B, PCR Detected (NotDetected)
== END ==
PROVIDERS: Visit Provider Family Medicine
DX: R19.7 Diarrhea, unspecified (principal); A04.72 Enterocolitis due to Clostridium difficile, not specified as recurrent
CPT/HCPCS: 87506

== ENCOUNTER → 2022-03-30 13:39 | Outpatient (CLI) | payer MEDICARE, SELFPAY ==
--- NOTE | 2022-03-30 13:41 | XR_ITS ---
FINAL REPORT CLINICAL HISTORY: ureteral stone COMPARISON: 03/31/2021 FINDINGS: A single view of the abdomen was obtained. A right ureteral stent has been removed. There is an aortic stent graft present. There is a nonobstructive bowel gas pattern. There are no abnormally dilated loops of small bowel. There are several stones in the lower pole of the left kidney measuring up to 4 mm. There are vascular calcifications. IMPRESSION: Left nephrolithiasis. Reviewed, Interpreted and Dictated by Jameel Grossman III, MD Transcribed by Mohini Torres Authenticated and [facility]
== END ==
PROVIDERS: PCP Family Medicine; Visit Provider Urology
DX: N20.1 Calculus of ureter (principal)
CPT/HCPCS: 74018

== ENCOUNTER 2022-04-14 06:03 | Emergency (ER) | payer MEDICARE, SELFPAY ==
[2022-04-14 06:05] VITALS: BP 145/79; PULSE 92; RESP 16; TEMP 36.8; O2SAT 95; BMI 20.7
--- NOTE | 2022-04-14 06:28 | XR_ITS ---
FINAL REPORT CLINICAL HISTORY: RIGHT RIB PAIN FINDINGS: 3 views of the right ribs were obtained. There are no rib fractures. There is no pleural fluid collection or pneumothorax. A single view of the chest demonstrates right lung opacities. IMPRESSION: Right lung opacities could represent pneumonia or scarring. No acute rib fracture or pneumothorax. Reviewed, Interpreted and Dictated by Jameel Grossman III, MD Transcribed by Keven Garduno Authenticated and [facility]
--- NOTE | 2022-04-14 06:35 | PC.NURSE ---
Pt gone to RAD
--- NOTE | 2022-04-14 06:45 | PC.NURSE ---
pt back from RAD
[2022-04-14 07:00] VITALS: BP 133/68; PULSE 82; O2SAT 91
--- NOTE | 2022-04-14 07:15 | HMH.EDGENADL ---
ED Disposition Clinical Impression: Hilar mass, Hepatic metastases Disposition: Home, Self-Care Condition on Discharge: Fair Instructions: DI for Chest Pain Additional Instructions: fluids and see pcp and pul for follow up Referrals: Chip Ledezma MD [Primary Care Provider] - Anais Post MD [Physician] - - Critical Care Critical Care Time: No Attestation: On 04/14/22, the high probability of a clinically significant, sudden or life threatening deterioration of the following system(s) required my full and direct attention, intervention and personal management. The time I documented below is in addition to time spent performing reported procedures but includes the following listed in this critical care notation. Medical Decision Making - Medical Records Medical records reviewed: Yes: I reviewed the patient's medical records. - Lauri Inquiry Pt receiving controlled substance: No Vital Signs: 04/14/22 06:05 04/14/22 07:00 Temperature 98.2 F Temperature Source Oral Pulse Rate 82 Pulse Rate [Left Radial] 92 H Respiratory Rate 16 Blood Pressure 133/68 Blood Pressure [Right Arm] 145/79 H Blood Pressure Mean 100 Blood Pressure Mean [Right Arm] 101 Blood Pressure Source [Right Arm] Automatic Cuff 02 Sat by Pulse Oximetry 95 91 L Oxygen Delivery Method Room Air Room Air - Lab Data Lab results reviewed: Yes: I reviewed the patient's lab results. Lab Results 04/14/22 07:30: WBC 7.6, RBC 5.45 H, Hgb 16.6 H, Hct 49.4 H, MCV 90.6, MCH 30.5, MCHC 33.7, RDW 14.4, Plt Count 249, MPV 7.8, Neut % (Auto) 76.7, Lymph % (Auto) 11.4, Sebastian % (Auto) 7.3, Eos % (Auto) 1.6, Baso % (Auto) 3.0 H, Neut # (Auto) 5.8, Lymph # (Auto) 0.9, Sebastian # (Auto) 0.6, Eos # (Auto) 0.1, Baso # (Auto) 0.2 04/14/22 07:30: Sodium 138, Potassium 3.5, Chloride 102, Carbon Dioxide 31 H, Anion Gap 8.5, BUN 12, Creatinine 0.50 L, Estimated Creat Clear 35, Estimated GFR 119, Est GFR ( Amer) 144, Glucose 114 H, Calcium 9.1 04/14/22 07:30: Total Bilirubin 0.9, Direct Bilirubin 0.2, Conjugated Bilirubin 0.0, Indirect Bilirubin 0.7, Unconjugated Bilirubin 0.7, AST 46 H, ALT 28, Alkaline Phosphatase 49, Total Protein 7.5, Albumin 3.9 04/14/22 07:30: Troponin I < 0.01, Lipase 72 04/14/22 07:30: ESR 8 04/14/22 07:35: Urine Color Yellow, Urine Appearance Clear, Urine pH 5.5, Ur Specific [place] >= 1.030, Urine Protein Trace, Urine Glucose (UA) Negative, Urine Ketones 1+, Urine Blood 2+, Urine Nitrate Negative, Urine Bilirubin 1+ A, Urine Urobilinogen 0.2, Ur Leukocyte Esterase Negative, Urine RBC 3-5, Urine WBC Occasional, Ur Squamous Epith Cells 3-5, Urine Bacteria Trace Result diagrams: 04/14/22 07:30 04/14/22 07:30 Orders (Tests/Meds): ED MEDICATIONS Generic Name Dose Route Start Last Admin Trade Name Freq PRN Reason Stop Dose Admin Sodium Chloride 10 ml 04/14/22 07:28 Sodium Chloride 0.9% 10ml Flush Syringe IV 05/14/22 07:27 NEEDED PRN Maintain IV Site Discontinued Medications Generic Name Dose Route Start Last Admin Trade Name Freq PRN Reason Stop Dose Admin Iopamidol 70 ml 04/14/22 08:05 04/14/22 08:06 Iopamidol-370 (76%);100ml Bottle IV 04/14/22 08:06 70 ml ONCE ONE Administration Sodium Chloride 50 ml 04/14/22 08:05 04/14/22 08:06 0.9 % Sodium Chloride 50 Ml Vial IV 04/14/22 08:06 50 ml ONCE ONE Administration ORDERS Category Date Time Status Troponin I Q3H Lab 04/14/22 10:30 Ordered Troponin I Q3H Lab 04/14/22 13:30 Ordered - Radiology Data #1 Image(s): Chest Image Reviewed: Yes I have reviewed radiologist's interpretation Preliminary Findings: Abnormal (see report ) General Adult HPI - General Chief complaint: PAIN Stated complaint: Pain in upper right rib cage Time Seen by Provider: 04/14/22 06:30 Mode of Arrival: Ambulatory Source of Information: Patient, Spouse, Medical Record Limitations: No Limitations Description of Symptoms (Recalled
--- NOTE | 2022-04-14 07:29 | PC.NURSE ---
RajaniRN at bedside starting IV and assessing patient
--- NOTE | 2022-04-14 07:31 | CT_ITS ---
FINAL REPORT TECHNIQUE: Then section axial CT images of the chest were obtained with contrast. Three-D reformatted images were also obtained.This study was performed with techniques to keep radiation doses as low as reasonably achievable (ALARA). Individualized dose reduction techniques using automated exposure control or adjustment of mA and/or kV according to the patient''s size were employed. CLINICAL HISTORY: Rt anterior rib pain FINDINGS: There is no evidence of pulmonary embolism. There is no evidence of thoracic aortic aneurysm or dissection. There is a right hilar mass measuring 40 x 33 mm. There is mediastinal adenopathy. A right paratracheal node measures 49 mm. A right subcarinal node measures 20 mm. There is an 11 mm nonspecific pleural base nodule in the left lower lobe. There are moderate changes of emphysema. There is mild scarring. Limited images of the upper abdomen demonstrate multiple hepatic masses consistent with widespread hepatic metastatic disease. One of the larger masses in the left hepatic lobe measures 6.7 cm. There is mild nonspecific adrenal gland enlargement. There is a partially imaged stone in the right renal pelvis. An aortic stent graft is present. IMPRESSION: No evidence of pulmonary embolism. Right hilar mass with mediastinal adenopathy. Widespread hepatic metastatic disease. Reviewed, Interpreted and Dictated by Jameel Grossman III, MD Transcribed by Keven Garduno Authenticated and [facility]
[2022-04-14 07:37] LABS: Basophils # 0.2 K/mm3 (0-0.2); Eosinophils # 0.1 K/mm3 (0.0-0.4); Eosinophils % 1.6 % (0.1-12.0); Hematocrit 49.4 % (37.0-47.0); Hemoglobin 16.6 g/dL (12.2-16.2); Lymphocytes # 0.9 K/mm3 (0.7-4.5); Lymphocytes % 11.4 % (10-50); Mean Corpuscular HGB Conc 33.7 g/dL (31.8-35.4); Mean Corpuscular Hemoglobin 30.5 pg (27.0-31.2); Mean Corpuscular Volume 90.6 fl (81-99); Mean Platelet Volume 7.8 fl (7.4-10.4); Monocytes # 0.6 K/mm3 (0.1-1.0); Monocytes % 7.3 % (1.7-9.3); Neutrophils # 5.8 K/mm3 (1.8-7.8); Neutrophils % 76.7 % (37.0-80.0); Platelet Count 249 K/mm3 (142-424); Red Blood Count 5.45 M/mm3 (4.20-5.40); Red Cell Distribution Width 14.4 % (11.5-17.5); White Blood Count 7.6 K/mm3 (4.8-10.8)
[2022-04-14 07:44] LABS: Chloride 102 mmol/L (98-107); Potassium 3.5 mmoL/L (3.5-5.1); Sodium 138 mmol/L (136-145)
[2022-04-14 07:45] LABS: Microscopic, Urine URINE MICROSCOPIC (MICROSCOPIC)
[2022-04-14 07:47] LABS: Anion Gap 8.5 mEq/L (5-15); Blood Urea Nitrogen 12 mg/dl (7-17); Calcium 9.1 mg/dl (8.4-10.2); Carbon Dioxide 31 mmol/L (22.0-30.0); Creatinine Clearance Estimated 35 mL/min (50-200); Estimated Glomerular Filt Rate 119 ml/min (>60); GFR (African American) 144 ML/MIN (>60); Glucose 114 mg/dl (74-100); Lipase 72 U/L (23-300)
[2022-04-14 07:47] LABS: Appearance,Urine CLEAR (Clear); Blood, Urine 2+ (Negative); Color,Urine YELLOW (Yellow); Glucose,Urine (UA) Negative (Negative); Ketones,Urine 1+ (Negative); Leukocyte Esterase,Urine Negative (Negative); Nitrate,Urine Negative (Negative); PH,Urine 5.5 (5.0-8.5); Protein,Urine TRACE (Negative); Specific Gravity, Urine >= 1.030 (1.005-1.030); Urobilinogen,Urine 0.2 EU/dl (0.2)
[2022-04-14 07:50] LABS: Bilirubin,Urine 1+ (Negative)
[2022-04-14 07:53] LABS: Alanine Aminotransferase 28 U/L (12-78); Albumin Level 3.9 g/dl (3.5-5.0); Alkaline Phosphatase 49 U/L (38-126); Aspartate Amino Transferase 46 U/L (14-36); Bilirubin,Direct 0.2 mg/dl (0.0-0.4); Bilirubin,Indirect 0.7 mg/dL (0.0-0.9); Bilirubin,Total 0.9 mg/dl (0.2-1.3); Bilirubin,Unconjugated 0.7 mg/dL (0.0-1.1); Total Protein,Serum 7.5 g/dl (6.3-8.2)
--- NOTE | 2022-04-14 07:55 | PC.NURSE ---
pt to CT
[2022-04-14 08:00] LABS: Bacteria,Urine Trace /lpf; WBC,Urine Occasional #/hpf (0-3)
[2022-04-14 08:00] LABS: Troponin I < 0.01 ng/ml (0.00-0.034)
--- NOTE | 2022-04-14 08:03 | PC.NURSE ---
Pt returned from CT
[2022-04-14 08:10] LABS: Erythrocyte Sedimentation Rate 8 mm/hr (0-30)
--- NOTE | 2022-04-14 08:53 | PC.NURSE ---
pt ambulated to bathroom independently at this time
--- NOTE | 2022-04-14 09:05 | PC.NURSE ---
Rounded on pt at this time, provided her with glass of water, advised her and daughter that we were waiting on MD to review results and determine further POC. Both agreeable, no other needs at this time.
--- NOTE | 2022-04-14 09:30 | PC.NURSE ---
Went in with DR. Argueta to discuss results and POC. Called and spoke with Dr. Post's office, they advised that patient could come over after she was d/c'ed from ER
[2022-04-14 10:17] VITALS: BP 148/81; PULSE 71; RESP 20; TEMP 36.7; O2SAT 95
== END 2022-04-14 10:20 | disposition home or self-care (01) ==
PROVIDERS: Emergency Provider Emergency Medicine; PCP Family Medicine
DX: R91.8 Other nonspecific abnormal finding of lung field (principal); C78.7 Secondary malignant neoplasm of liver and intrahepatic bile duct; R07.81 Pleurodynia; R06.02 Shortness of breath; I10 Essential (primary) hypertension; N28.9 Disorder of kidney and ureter, unspecified; I25.10 Atherosclerotic heart disease of native coronary artery without angina pectoris; I72.9 Aneurysm of unspecified site; R78.5 Finding of other psychotropic drug in blood; E10.9 Type 1 diabetes mellitus without complications; M19.90 Unspecified osteoarthritis, unspecified site; G43.909 Migraine, unspecified, not intractable, without status migrainosus; F17.210 Nicotine dependence, cigarettes, uncomplicated; J44.9 Chronic obstructive pulmonary disease, unspecified; Z79.51 Long term (current) use of inhaled steroids; Z79.899 Other long term (current) drug therapy; Z88.6 Allergy status to analgesic agent; Z91.048 Other nonmedicinal substance allergy status; Z82.49 Family history of ischemic heart disease and other diseases of the circulatory system
CPT/HCPCS: 71101; 71275; 80048; 80076; 81001; 83690; 84484; 85025; 85651; 99284; Q9967

== ENCOUNTER → 2022-04-24 09:16 | Outpatient (POV) | payer MEDICARE, SELFPAY ==
--- NOTE | 2022-04-24 09:48 | HMH.PAINSOAP ---
[facility] Pain Management SOAP Note Subjective:: Patient is a pleasant 81-year-old female who is here as a telehealth for medication refill and follow-up. Patient is currently being treated for degenerative disc disease of lumbar spine with lumbar radiculopathy symptoms. Patient is being managed with [place] 7.5 mg 3 times a day and pregabalin 150 mg twice a day. Patient denies any side effects from the medications. Patient denies any changes to the location and type of pain. Patient states that this is adequately helping manage their pain. Rates pain as 4 out of 10. [facility]anner number [id number] with an active morphine equivalent 0. Drug screens have been reviewed and appropriate. Patient is currently being treated for E. coli and C. difficile and cannot be in our clinic today. Review of Systems: General: No recent weight changes, no fever, no sleep disturbances Respiratory: No cough, no shortness of air, no recurring pulmonary infections Cardiovascular/peripheral vascular: No chest pain, no palpitations, no edema, no shortness of breath Gastrointestinal: No new onset incontinence, normal bowel movements reported Genitourinary: No new onset incontinence Musculoskeletal: Low back pain Psychiatric: [Normal mood/affect] Neurological: [Denies weakness in extremities], [denies balance issues] Objective:: Physical Exam: General: Alert and oriented x3, no acute distress, pleasant and cooperative Lungs: Respirations even and unlabored, symmetrical chest expansion Eyes: PERRL Musculoskeletal: Flexion and extension of lumbar [spine] somewhat guarded secondary to pain, [antalgic gait noted] Neurological: Speech clear, no gross sensory deficit Assessment:: Degenerative disc disease of lumbar spine with lumbar radiculopathy symptoms Plan:: We will continue the patient's [place] 7.5 mg 3 times a day and Lyrica 150 mg twice a day. We will provide the patient with 1 month of refills. We would like to see the patient back in 1 month for follow-up and reevaluation of chronic pain syndrome. Patient has been advised of risks of oversedation with the prescribed medication. Narcan has been offered to the patient in the event of oversedation. Patient has been advised that a family member should also be educated regarding administration of Narcan. Patient has been instructed to contact the clinic with any concerns before the next appointment. Dr. Craven has reviewed this note and agrees with this plan of care. This note was dictated using voice recognition software and make contain errors or omissions. [facility] History Medical History: Reports:: Aneurysm, Cancer, Chronic Obstructive Pulmonary Disease (COPD), Coronary Artery Disease, Diabetes Mellitus Type 1, Hyperlipidemia, Hypertension, Kidney Stones, Migraine, Renal Disease Denies:: Diabetes Mellitus Type 2, Internal Pacemaker, MRSA, Seizures *Have you ever received a pneumonia vaccine?: Yes *Have you received a flu vaccine this season?: Yes Other Medical History: Reports: Arthritis, Cataracts, Other. Denies: Blood Transfusion Reaction. Comment Only: Glaucoma (macular degeneration) Laterality Cases: Left: Mastectomy, Bilateral: Tonsillectomy, Other Other Surgeries: Yes: No Previous Surgery, Cancer Surgery, Cardiac Catheterization, Colonoscopy, Tubal Ligation, Other (lithotripsy). No: Pacemaker Amputation: No Fractures: No - *Social History Smoking Status: Current every day smoker Tobacco Type: cigarettes # Packs/Day (cigarettes): 1 Alcohol Intake: never Alcohol Intake Frequency:: a few times a month Substance Use Type: denies use *Occupational Status:: retired Housing: house Household Members: significant other *Travel in the last 8 weeks: Inside the [place] Family Hx:: Coronary Artery Disease
== END ==
PROVIDERS: Visit Provider Anesthesiology
DX: M51.16 Intervertebral disc disorders with radiculopathy, lumbar region (principal)
CPT/HCPCS: 99212; G0463

== ENCOUNTER → 2022-05-02 06:53 | Outpatient (CLI) | payer MEDICARE, SELFPAY | PROVIDERS: PCP Family Medicine; Visit Provider Internal Medicine Pulmonary Disease | DX: Z01.812 Encounter for preprocedural laboratory examination (principal); Z20.822 Contact with and (suspected) exposure to COVID-19; J43.9 Emphysema, unspecified | CPT/HCPCS: C9803; U0003; U0005 ==

== ENCOUNTER 2022-05-03 07:27 | Day surgery (SDC) | payer MEDICARE, SELFPAY ==
[2022-05-03] VITALS (12 sets, daily range): BP systolic 94–141; BP diastolic 40–87; PULSE 82–110; RESP 14–20; TEMP 36.2–36.8; O2SAT 91–97
--- NOTE | 2022-05-03 08:26 | P.PN_ITS ---
[facility] Anesthesia Checklist - Patient Identification Patient Identification: Arm Band - Structural Data Admitted From: Home Planned Operative Procedure/s: EBUS, FNA Consent for Planned Operative Procedure(s) Verified: Yes Verified Documents: Surgical Consent, History and Physical - NPO Status Verified Time NPO: 00:00 - Additional verifications Anesthesia Reactions: No Hx Blood Transfusions: No Blood Transfusion Reaction: No - Airway Assessment C-Spine Mobility Assessed: Yes (mp2) TMJ Mobility Assessed: Yes Dentition: Good Dentition - Neurological Assessment Level of Consciousness: Awake, Alert - Anesthesia Plan Anesthesia Risk discussed: Yes Anesthesia Plan: Verified ASA Class: III Anesthesia Type: General [facility] History I have reviewed the patient's past medical history: Yes Medical History: Reports:: Aneurysm, Cancer (breast), Chronic Obstructive Pulmonary Disease (COPD), Coronary Artery Disease, Hyperlipidemia, Hypertension, Kidney Stones, Migraine, Renal Disease Denies:: Diabetes Mellitus Type 1, Diabetes Mellitus Type 2, Internal Pacemaker, MRSA, Seizures *Have you ever received a pneumonia vaccine?: Yes *Have you received a flu vaccine this season?: Yes Other Medical History: Reports: Arthritis, Cataracts, Other. Denies: Blood Transfusion Reaction. Comment Only: Glaucoma (macular degeneration) Anesthesia experience/problems:: nac Laterality Cases: Left: Mastectomy, Bilateral: Tonsillectomy, Other Other Surgeries: Yes: Cancer Surgery, Cardiac Catheterization, Colonoscopy, Tubal Ligation, Other (lithotripsy). No: Pacemaker Amputation: No Fractures: No - *Social History Last grade of school completed: Some college Smoking Status: Current every day smoker Tobacco Type: cigarettes # Packs/Day (cigarettes): 1 Alcohol Intake: never Alcohol Intake Frequency:: a few times a month Substance Use Type: denies use *Occupational Status:: retired Housing: house Household Members: significant other *Travel in the last 8 weeks: None Family Hx:: No significant family history
--- NOTE | 2022-05-03 10:23 | XR_ITS ---
FINAL REPORT CLINICAL HISTORY: post procedure..sob COMPARISON: 04/14/2022 FINDINGS: SINGLE-VIEW CHEST The heart size is normal. The mediastinum is normal. There worsening bibasilar pulmonary opacities consistent with worsening atelectasis or pneumonia. There is no pneumothorax. IMPRESSION: Worsening atelectasis or pneumonia. Reviewed, Interpreted and Dictated by Jameel Grossman III, MD Transcribed by Lisbeth Ashton Authenticated and [facility]
--- NOTE | 2022-05-03 10:26 | P.PN_ITS ---
[facility] Anesthesia Record Part I Intake, IV Amount: 900 Estimated blood loss (mL): 10 Urine output (mL): 0 Blood Pressure: 141/71 SaO2: 94 Pulse Rate: 110 Respiratory Rate: 20 Temperature: 98.2 F Patient is:: Drowsy, Oral/Nasal airway Stable to PACU at:: 10:18
--- NOTE | 2022-05-03 12:00 | HMH.ANESII ---
[facility] Anesthesia Record Part II Discharge Time: 10:52 Destination: Surgical Day Care (OP Surgery) PACU nurse assessment reviewed?: Yes Patient Condition:: Good Anesthesia Complications:: None Swallowing reflex intact?: Yes Cyanosis?: No Blood Pressure: 131/75 Pulse Rate: 90 Temperature: 97.2 F Mental Status: Alert & Oriented Pain level:: 0 Nausea and/or vomitting:: None Intake, IV Amount: 0
--- NOTE | 2022-05-04 11:17 | HMH.BRONCH ---
- Procedure: Date: 05/03/22 Patient Date of :: 1940 Procedure Performed:: Bronchoscopy with EBUS FNA Indications:: Mediastinal and hilar lymphadenopathy Performing Provider:: Anais Post MD Referring Provider:: Dr. Ledezma Sedation:: General anesthesia Procedure:: Bronchoscopy with endobronchial ultrasound-guided fine-needle aspiration: Clean EBUS bronchoscopy advanced the ET tube and lymph node surveillance was performed. Patient noted to have lymph nodes at stations 10R, 7 and 4R. Station 4Rappears to be a conglomerate of lymph nodes and mediastinal mass. No lymph nodes were appreciated at left lung lymph node stations. Fine-needle aspiration was performed at stations 10 R, 7 and 4R with adequate lymph node sample aspiration. Pathology at bedside confirmed lymph node tissue sampling, adequacy of the sampling. Preliminary diagnosis concerning for malignancy at this point of time. Patient tolerated procedure without any complications. Will follow the patient in pulmonary clinic in 7 days to discuss results. We will also schedule the patient for PET CT scan. We will also make an oncology appointment for further follow-up. Findings:: Please see the procedure note Recommendations:: Please see the procedure note Complications:: None Estimated blood obtained (mL): 5
== END 2022-05-03 11:40 | disposition home or self-care (01) ==
LOC: OR 07:28
PROVIDERS: PCP Family Medicine; Visit Provider Internal Medicine Pulmonary Disease
DX: J43.9 Emphysema, unspecified (principal); Z85.3 Personal history of malignant neoplasm of breast; I10 Essential (primary) hypertension; I25.10 Atherosclerotic heart disease of native coronary artery without angina pectoris; E11.9 Type 2 diabetes mellitus without complications; F17.210 Nicotine dependence, cigarettes, uncomplicated; R59.0 Localized enlarged lymph nodes; Z79.899 Other long term (current) drug therapy; Z90.12 Acquired absence of left breast and nipple
CPT/HCPCS: 31653; 71045; 87070; 87102; 87116; 87186; 87205; 87206; 88172; 88173; 88305; 88342; 88360